=== PATIENT | female | born 1955 | race Caucasian/White ===

== ENCOUNTER 2023-02-17 12:05 | Outpatient (OUT) | payer MEDICARE, SELFPAY ==
[2023-02-17 12:19] LABS: Basophils Percent Auto 0.5 % (0.2-2.0); Eosinophils Absolute Auto 0.2 10^3/uL (0.0-0.7); Eosinophils Percent Auto 1.9 % (0.9-7.0); Hematocrit 41.4 % (36.0-48.0); Hemoglobin 13.7 g/dL (12.0-16.0); Immature Granulocytes Abs Auto 0.02 10^3/uL (0.00-0.03); Immature Granulocytes Pct Auto 0.2 % (0.0-0.5); Lymphocytes Absolute Auto 2.9 10^3/uL (1.2-3.8); Lymphocytes Percent Auto 33.7 % (20.5-60.0); Mean Corpuscular HGB Conc 33.1 g/dL (29.9-35.2); Mean Corpuscular Hemoglobin 32.2 pg (26.7-34.0); Mean Corpuscular Volume 97.4 fL (81.0-99.0); Mean Platelet Volume 9.6 fL (9.5-13.5); Monocytes Absolute Auto 0.7 10^3/uL (0.3-0.8); Monocytes Percent Auto 7.4 % (1.7-12.0); Neutrophils Absolute Auto 4.9 10^3/uL (1.4-6.5); Neutrophils Percent Auto 56.3 % (43.0-75.0); Platelet Count 276 10^3/uL (150-450); Red Blood Count 4.25 10^6/uL (4.20-5.40); Red Cell Distribution Width 12.2 % (11.0-15.0); White Blood Count 8.7 10^3/uL (4.0-11.0)
== END 2023-02-17 12:06 | disposition home or self-care (01) ==
LOC: LAB 12:06
DX: H02.839 Dermatochalasis of unspecified eye, unspecified eyelid (principal)
CPT/HCPCS: 36415; 85025

== ENCOUNTER 2023-03-27 14:19 | Outpatient (OUT) | payer MEDICARE, SELFPAY ==
--- NOTE | 2023-03-27 14:22 | MM_ITS ---
Patient: NORMA COLON Exam Date: 03/27/2023 : 1955 Gender:F Ordering : CHRIS KEYES Admission #: [id number] Family : Order #: [id number] CLICK HERE TO VIEW EXAM RADIOLOGY REPORT PROCEDURE: MM TOMOSYNTHESIS SCREENING BI COMPARISON: MG MAMM SCREEN 3D DEANNA CAD, 03/01/2021. MG MAMM SCREEN 3D DEANNA CAD, 03/20/2022. INDICATIONS: Screening Calculator Name NCI Breast Cancer Risk Assessment Tool 5 Year Breast Cancer Risk 2.40% Lifetime Breast Cancer Risk 7.60% Personal Breast Cancer No Personal Ovarian Cancer No Treatments None Family Cancers None LOCATION: [facility] BREAST COMPOSITION: Heterogeneously dense,which may obscure small masses. FINDINGS: DIAGNOSTIC CATEGORY 1--NEGATIVE. NO CHANGE FROM COMPARISON ASSESSMENT. Scattered benign-appearing calcifications are present. Scattered benign-appearing lymph nodes are present. RIGHT BREAST: No significant suspicious finding. LEFT BREAST: No significant suspicious finding. RECOMMENDATIONS: ROUTINE MAMMOGRAM AND CLINICAL EVALUATION IN 12 MONTHS. PLEASE NOTE: A NORMAL MAMMOGRAM DOES NOT EXCLUDE THE POSSIBILITY OF BREAST CANCER. A CLINICALLY SUSPICIOUS PALPABLE LUMP SHOULD BE BIOPSIED. Dictated by: Jorge Camejo MD on 03/30/2023 at 08:58 Approved by: Jorge Camejo MD on 03/30/2023 at 09:00
== END 2023-03-27 14:20 | disposition home or self-care (01) ==
LOC: MAMMO 14:19
PROVIDERS: PCP Nurse Practitioner Family; Visit Provider Nurse Practitioner Family
DX: Z12.31 Encounter for screening mammogram for malignant neoplasm of breast (principal)
CPT/HCPCS: 77063; 77067

== ENCOUNTER 2024-03-28 12:56 | Outpatient (OUT) | payer MEDICARE, SELFPAY ==
--- NOTE | 2024-03-28 13:00 | MM_ITS ---
Patient Name: NORMA COLON MR#: [id number] : 1955 Exam Date: 03/28/2024 Ordering Doctor: CHRIS PARKS [employer] OPERATOR-C RADIOLOGY REPORT PROCEDURE: MM TOMOSYNTHESIS SCREENING BI COMPARISON: MG MAMM SCREEN 3D DEANNA CAD, 03/20/2022. MM TOMOSYNTHESIS SCREENING BI, 03/27/2023. INDICATIONS: Screening Calculator Name NCI Breast Cancer Risk Assessment Tool 5 Year Breast Cancer Risk 2.40% Lifetime Breast Cancer Risk 7.30% Personal Breast Cancer No Personal Ovarian Cancer No Treatments None Family Cancers None LOCATION: [facility] BREAST COMPOSITION: The breasts are heterogeneously dense,which may obscure small masses. FINDINGS: DIAGNOSTIC CATEGORY 1--NEGATIVE. NO CHANGE FROM COMPARISON ASSESSMENT. Scattered benign-appearing nodules are present. Scattered benign-appearing calcifications are present. Scattered benign-appearing lymph nodes are present. RIGHT BREAST: No significant suspicious finding. LEFT BREAST: No significant suspicious finding. RECOMMENDATIONS: ROUTINE MAMMOGRAM AND CLINICAL EVALUATION IN 12 MONTHS. PLEASE NOTE: A NORMAL MAMMOGRAM DOES NOT EXCLUDE THE POSSIBILITY OF BREAST CANCER. A CLINICALLY SUSPICIOUS PALPABLE LUMP SHOULD BE BIOPSIED. Dictated by: Jorge Camejo MD on 03/28/2024 at 14:33 Approved by: Jorge Camejo MD on 03/28/2024 at 14:34
--- NOTE | 2024-03-28 13:00 | XR_ITS ---
The [address] [address] Patient Name: NORMA COLON MRN: [id number] date: 1955 Sex: F Assigned Patient Location: [facility] Current Patient Location: Accession/Order Number: [id number] Exam Date: 03/28/2024 13:30 Report Date: 03/29/2024 15:06 At the request of: CHRIS PARKS Procedure: XR DEXA axial skeleton EXAMINATION: XR DEXA axial skeleton, 03/28/2024 1:30 PM EST HISTORY: Screening COMPARISON: None. TECHNIQUE: Dual-energy X-ray absorptiometry (DEXA) bone density study performed for the axial skeleton. FINDINGS: Bone mineral density AP spine L1-L4 measures 1.258 g/sq cm. T score 0.7. Normal Bone mineral density of the radius measures 0.472 g/sq cm. T score 2.6. Normal XR/XR DEXA axial skeleton IMPRESSION: Normal bone mineral density. Low fracture risk Pharmacologic treatment recommendations * No uniform recommendation applies to all patients. Management plans must be individualized. * Consider initiating pharmacologic treatment in postmenopausal women and men >= 50 years of age who have the following: Primary fracture prevention: * T-score <= - 2.5 at the femoral neck, total hip, lumbar spine, 33% radius (some uncertainty with existing data) by DXA. * Low bone mass (osteopenia: T-score between - 1.0 and - 2.5) at the femoral neck or total hip by DXA with a 10-year hip fracture risk >= 3% or a 10-year major osteoporosis-related fracture risk >= 20% (i.e., clinical vertebral, hip, forearm, or proximal humerus) based on the [place]-adapted FRAXregistered model. Secondary fracture prevention: * Fracture of the hip or vertebra regardless of BMD [4, 5]. * Fracture of proximal humerus, pelvis, or distal forearm in persons with low bone mass (osteopenia: T-score between - 1.0 and - 2.5). The decision to treat should be individualized in persons with a fracture of the proximal humerus, pelvis, or distal forearm who do not have osteopenia or low BMD [12, 13]. Franko WEAVER, Austin HERNANDEZ, Donna KL, Quinton EM, Vitaliy KG, AJ, Kaela ES. The clinician's guide to prevention and treatment of osteoporosis. Osteoporos Int. 2021;33(10):4398-3509. doi: 10.1007/f06580-349-75855-g. Epub 2021Sep 19. Erratum in: Osteoporos Int. 2021Dec 19;: PMID: 93553785; PMCID: [id number]. Electronically authenticated by: SANTO PEREZ Date: 03/29/2024 15:06
== END 2024-03-28 12:57 | disposition home or self-care (01) ==
LOC: MAMMO 12:56
PROVIDERS: PCP Nurse Practitioner Family; Visit Provider Nurse Practitioner Family
DX: Z12.31 Encounter for screening mammogram for malignant neoplasm of breast (principal); Z78.0 Asymptomatic menopausal state; Z13.820 Encounter for screening for osteoporosis
CPT/HCPCS: 77063; 77067; 77080

== ENCOUNTER 2025-01-20 10:19 | Outpatient (OUT) | payer MEDICARE, SELFPAY ==
[2025-01-20 10:42] LABS: Hematocrit 41.4 % (36.0-48.0); Hemoglobin 14.0 g/dL (12.0-16.0); Immature Granulocytes Abs Auto 0.02 10^3/uL (0.00-0.03); Immature Granulocytes Pct Auto 0.3 % (0.0-0.5); Lymphocytes Absolute Auto 2.3 10^3/uL (1.2-3.8); Mean Corpuscular HGB Conc 33.8 g/dL (29.9-35.2); Mean Corpuscular Hemoglobin 32.3 pg (26.7-34.0); Mean Corpuscular Volume 95.4 fL (81.0-99.0); Platelet Count 267 10^3/uL (150-450); Red Blood Count 4.34 10^6/uL (4.20-5.40); White Blood Count 6.2 10^3/uL (4.0-11.0)
[2025-01-20 11:30] LABS: Alanine Aminotransferase 29 U/L (14-59); Albumin Globulin Ratio 1.0; Albumin Level 3.8 g/dL (3.4-5.0); Alkaline Phosphatase 76 U/L (46-116); Anion Gap 11.3; Aspartate Amino Transferase 20 U/L (15-37); Blood Urea Nitrogen 18.0 mg/dL (7.0-18.0); Calcium 8.7 mg/dL (8.5-10.1); Carbon Dioxide 29.4 mmol/L (21.0-32.0); Chloride 103 mmol/L (98-107); Cholesterol 197 mg/dL (<=200); Estimated GFR (African America >60 (>=60 mL/min/1.73m^2); Estimated GFR (Non-African Ame >60 (>=60 mL/min/1.73m^2); Globulin 3.9 g/dL; Glucose 98 mg/dL (74-106); HDL Cholesterol 74 mg/dL (40-60); Potassium 3.7 mmol/L (3.5-5.1); Sodium 140 mmol/L (136-145); Total Protein 7.7 g/dL (6.4-8.2); Triglycerides 77 mg/dL (<=150); VLDL CHOLESTEROL 15.4 mg/dL
== END 2025-01-20 10:20 | disposition home or self-care (01) ==
PROVIDERS: PCP Nurse Practitioner Family; Visit Provider Nurse Practitioner Family
DX: E78.2 Mixed hyperlipidemia (principal); I10 Essential (primary) hypertension
CPT/HCPCS: 36415; 80053; 80061; 85025

== ENCOUNTER 2025-03-29 14:00 | Outpatient (OUT) | payer MEDICARE, SELFPAY ==
--- NOTE | 2025-03-29 14:02 | MM_ITS ---
Patient Name: NORMA COLON MR#: [id number] : 1955 Exam Date: 03/29/2025 Ordering Doctor: CHRIS PARKS [employer] MAN-C RADIOLOGY REPORT PROCEDURE: MM TOMOSYNTHESIS SCREENING BI COMPARISON: MM TOMOSYNTHESIS SCREENING BI, 03/28/2024. MM TOMOSYNTHESIS SCREENING BI, 03/27/2023. MG MAMM SCREEN 3D DEANNA CAD, 03/20/2022. MG MAMM DEANNA SCRN W CAD DIG, 09/06/2013. INDICATIONS: Screening Calculator Name NCI Breast Cancer Risk Assessment Tool 5 Year Breast Cancer Risk 2.40% Lifetime Breast Cancer Risk 6.90% Personal Breast Cancer No Personal Ovarian Cancer No Treatments None Family Cancers None LOCATION: [facility] BREAST COMPOSITION: There are scattered areas of fibroglandular density. FINDINGS: DIAGNOSTIC CATEGORY 1--NEGATIVE. RIGHT BREAST: No significant suspicious finding. LEFT BREAST: No significant suspicious finding. RECOMMENDATIONS: ROUTINE MAMMOGRAM AND CLINICAL EVALUATION IN 12 MONTHS. Dictated by: Matias Russ MD on 03/29/2025 at 17:00 Approved by: Matias Russ MD on 03/29/2025 at 17:01
--- OUTSIDE RECORDS SUMMARY | 2025-03-29 14:03 | XMS_ITS | Clinical Summary ---
Author Organization [facility] Healthcare Address [address] [place] [address] Care Team Providers Care Monologist Name Role Phone Unavailable Primary Care Provider Unavailabl e Allergies No known active allergies Medications MedicationSigDispense QuantityRefillsLast FilledStart DateEnd DateStatus ASPIRIN 81 PO Aspir-81Active bisoprolol-hydroCHLOROthiazide (Ziac) 5-6.25 MG tablet 1 elupyu6301/18/2024ctive calcium 200 MG tablet CalciumActive fluorouracil (Efudex) 5 % cream Indications:Actinic keratosisApply to directed areas on the chest twice a day x 14 days. Dispense 30 day supply but only use for14 days. 40 g 02/17/2024ctive estradiol (Estrace) 0.1 MG/GM vaginal cream APPLY 1 GRAM VAGINALLY THURSDAY and THURSDAYActive atorvastatin (Lipitor) 20 MG tablet Active Active Problems No known active problems Social History Tobacco UseTypesPacks/DayYears UsedDateSmoking Tobacco: NeverSmokeless Tobacco: Never Tobacco Cessation:Counseling Given: Not Answered CommentsUnknownSex and Gender InformationValueDate RecordedSex Assigned at BirthNot on fileLegal TbaJcrbfk41/15/2023 6:38 PM EDTGender IdentityNot on fileSexual OrientationNot on file Last Filed Vital Signs Vital SignReadingTime TakenCommentsBlood Jmjimlxk056/8210 12:00 PM EDT Pulse--Temperature--Respiratory Rate--Oxygen Saturation--Inhaled Oxygen Concentration--Ghteer84.7 kg (147 lb)03/02/2024 9:35 AM UPTAybxan571.5 cm (5' 2 )03/02/2024 9:35 AM EDTBody Mass Index26.8903/02/2024 9:35 AM EDT Plan of Treatment DateTypeDepartmentCare Team (Latest Contact Info)Ejuhgfjxvfq50/07/2026 9:30 AM EDTOffice Visit [facility] [address] [place] [address] [place] [id number] Jr. Pancho Cespedes C, DO [address] [place] [address] Insurance
--- OUTSIDE RECORDS SUMMARY | 2025-03-29 14:04 | XMS_ITS | CCD ---
Author Organization [facility] Care Team Providers Care Die Engraver Name Role Phone LUCIA LINDA Primary Care Physician DR LUCIA LINDA Attending Unavailable SHANI, DR LUCIA Dan Consulting Unavailable SHANI, DR LUCIA Dan Primary Care Unavailable SHANI, DR LUCIA Dan Admitting Unavailable JOEY, DR LARRY Fraire Consulting Unavailable Lucia Linda Primary Care Unavailable Community, Outreach Admitting Unavailable Lucia Linda Referring Unavailable Community, Outreach Attending Unavailable MD Lucia Linda Primary Care Provider MD Lucia Linda Referring Provider Community, Outreach Attending Provider [phone] Johnna Dexter Unavailable Faiza Fritz Unavailable Courtney Mendez Unavailable COURTNEY MENDEZ Primary Care Physician Unavailable Primary Care Provider UnavailJENNIFER Rogers Attending Unavailable JR. CESPEDES GEORGE C Attending Unavailpawan CESPEDES JR., GEORGE C Referring UnavailCourtney Shafer APRN Primary Care Provider Courtney Mendez APRN Attending Provider [phone] COURTNEY MENDEZ Primary Care Physician Ursula Robledo Attending Unavailable Medications Current Medications MedicationDrug Class(es)DatesSig (Normalized)Sig (Original)amoxicillin 500 mg oral capsule (2 sources)Penicillin-class AntibacterialStart: 58-54-9233cjop 1 capsule by mouth every twelve hoursAmoxicillin 500 MG 1 capsule Orally Twice a day for 10 days Apr, ActiveAspir-81 81 MG (7 sources)take 1 tablet by mouth once dailyAspir-81 81 MG 1 tablet Orally Once a day Activeaspirin 81 mg delayed release oral tablet (11 sources)Platelet Aggregation Inhibitor, Nonsteroidal Anti-inflammatory Drug Start: 17-48-4738uxhz 1 tablet by mouth once dailyAspirin 81 mg tablet,delayed release (DR/EC) Active 81 MG PO Daily January 14, 2024 12:00am Complies with drug therapyStart: 92-23-0934kiodnkq 81 mg Chew Tab mg tab(s), Chewed, Daily, Refills(s) 0 Start Date: 09/24/20 Status: Ordered Repeat number: 1ASPIRIN 81 PO Aspir-81 Activebisoprolol fumarate 5 mg oral tablet (10 sources)beta-Adrenergic BlockerStart: 29-20-1190hppg 1 mg by mouth once dailybisoprolol 5 mg Tab mg tab(s), Oral, Daily, Refills(s) 0 Start Date: 09/24/20 Status: Ordered Repeat number: 1take 1 tablet by mouth every twenty-four hours Bisoprolol Fumarate 10 MG 1 tablet Orally Once a day for 90 days ActiveCalcium (5 sources)Phosphate Binder, Calciumcalcium 200 MG tablet Calcium Activecalcium carbonate 1250 mg oral tablet (10 sources)Start: 78-21-0933agiq 1 tablet by mouth twice dailyCalcium Carbonate 500 mg calcium (1,250 mg) tablet Active 500 MG PO Twice daily January 14, 2024 12:00am Complies with drug therapytake 1 tablet by mouth every twelve hours Calcium 500 MG 1 tablet with meals Orally Twice a day Activetake 1 tablet by mouth every twelve hoursCalcium 500 MG 1 tablet with meals Orally Twice a day Activecalcium carbonate 625 mg / cholecalciferol 125 unt oral tablet (3 sources)Vitamin DStart: 02-56-8577lnbg 1 tablet by mouth twice dailycalcium (as carbonate)-vitamin D 250 mg-125 units oral tablet 1 tab(s), Oral, BID, Refill(s) 0 Start Date: 09/24/20 Status: Ordered Repeat number: 1estradiol 0.1 mg/ml vaginal cream (13 sources)EstrogenStart: 62-87-4328Nawytuc 0.1 mg/g Cream See Instructions, 42.5 gm, Refill(s) 5, Apply pea-sized amount around urethra 2 times a week for maintenance, [facility], 158, cm, 01/18/25 10:13:00 EDT, Height/ Length Dosing, 66.4, kg, 01/18/25 10:13:00 EDT, Weight Dosing Start Date: 01/18/25 Status: Ordered Quantity: 42.5 Unit: g Repeat number: 6 Indications: Postmenopausal atrophic vaginitis;Start: 23-08-2209Wxpfvtqhn 0.01 % (0.1 mg/gram) cream Active 1 APPLICATOR VAGINAL Twice a Week January 14, 2024 12:0 0am Complies with drug therapyStart: 70-19-4663vzvudpgpx 0.1 mg/g Vag Crm 1 gm, Vaginal, MonFri, 42.5 gm, Refill(s) 6, 1 gm 2x/wk, [facility], 158, cm, 04/21/23 15:43:00 EST, Height/Length Dosing, 69.1, kg, 04/21/23 15:43:00 EST, Weight Dosing Start Date: 04/21/23 Status: OrderedStart: 63-29-0594rlhmwmazr 0.1 mg/g Vag Crm 1 gm, Vaginal, MonFri, 42.5 gm, Refill(s) 6, [facility], 158, cm, 02/11/21 11:10:00 EDT, Height/Length Dosing, 69, kg, 02/11/21 11:10:00 EDT, Weight Dosing Start Date: 04/25/21 Status: Ordered estradiol (Estrace) 0.1 MG/GM vaginal cream APPLY 1 GRAM VAGINALLY THURSDAY and THURSDAY ActiveEstradiol 0.01% cream twice weekly Activefluorouracil 50 mg/ml topical cream (5 sources)Nucleoside Metabolic InhibitorStart: 96-31-0330aygppprufkhg (Efudex) 5 % cream Indications: Actinic keratosis Apply to directed areas on the chest twice a day x 14 days. Dispense 30 day supply but only use for 14 days. 40 g 02/17/2024 ActivepredniSONE 20 mg oral tablet (1 source)Start: 34-15-2679vunc 1 tablet by mouth every twelve hourspredniSONE 20 MG 1 tablet Orally bid for 4 days Jan, Active Completed/Discontinued Medications MedicationDrug Class(es)DatesSig (Normalized)Sig (Original)amitriptyline hydrochloride 25 mg oral tablet (20 sources)Tricyclic AntidepressantStart: 08-12-2023 End: 97-59-6100biro 1 tablet by mouth once dailyAmitriptyline 10 mg tablet Discontinued 10 MG PO Daily August 12, 2023 1:40pm August 12, 2023 2:59pmStart: 09-24-2020 End: 21-07-1952dceq 1 tablet by mouth once dailyAmitriptyline 25 mg tablet Discontinued 25 MG PO Daily August 12, 2023 3:03pm January 18, 2024 10:38amtake 1 tablet by mouth every twenty-four hoursAmitriptyline HCl 10 MG 1 tablet Orally Once a day for 90 days Activeatorvastatin 20 mg oral tablet (20 sources)HMG-CoA Reductase InhibitorStart: 09-24-2020 End: 26-51-1360lagl 1 tablet by mouth once dailyAtorvastatin 20 mg tablet Discontinued 20 MG PO Daily August 12, 2023 1:40pm January 18, 2024 10:38am End: 75-95-0996jurghqcyijji (Lipitor) 10 MG tablet Atorvastatin Calcium 03/02/2024 DiscontinuedAtorvastatin Calcium Activebisoprolol fumarate 5 mg / hydroCHLOROthiazide 6.25 mg oral tablet (20 sources)Thiazide Diuretic, beta-Adrenergic BlockerStart: 01-18-2024 bisoprolol-hydroCHLOROthiazide (Ziac) 5-6.25 MG tablet 1 tablet 01/18/2024 ActiveStart: 08-12-2023 End: 21-68-9559wxse 1 tablet by mouth once dailyBisoprolol-Hydrochlorothiazide 5-6.25 mg tablet Discontinued 1 TAB PO Daily August 12, 2023 1:41pm January 18, 2024 10:38amcefTRIAXone (7 sources)Cephalosporin AntibacterialStart: 61-18-6143Iqlkkgxe 500 mg May, 1 grmcetirizine hydrochloride 10 mg oral tablet (2 sources)Histamine-1 Receptor AntagonistStart: 97-48-4948ursn 1 tablet by mouth every twenty-four hoursCetirizine HCl 10 MG 1 tablet Orally Once a day for 14 days Jul, Not-Takingfluticasone propionate 0.05 mg/actuat metered dose nasal spray (2 sources)CorticosteroidStart: 01-19-0297xhgu 1 spray(s) nasal route twice dailyFlonase Allergy Relief 50 MCG/ACT 1 spray in each nostril Nasally Twice a day for 14 days Jul, Not-Takingtriamcinolone acetonide 40 mg/ml injectable suspension (6 sources)CorticosteroidStart: 83-76-8037Gjrklia-40 Jan, 40 mg Problems Active Problems Problem ClassificationProblemDateDocumented DateEpisodic/ChronicAbdominal pain (2 sources)Abdominal pain; Translations: [Abdominal pain]EpisodicDisorders of lipid metabolism (12 sources)Mixed hyperlipidemia; Translations: [Mixed hyperlipidemia]Chronic Essential hypertension (15 sources)Essential hypertension; Translations: [Essential (primary) hypertension]Onset: [id number]owjv symptoms and ill- defined conditions (5 sources)Microscopic hematuria; Translations: [Asymptomatic microscopic hematuria]Onset: 630295-60-9257PawaghbjSeqgacowpj disorders (5 sources)Atrophic vaginitis; Translations: [Postmenopausal atrophic vaginitis] Onset: 30-72-0405UiftxvfElvtlahfqazix mental health disorders (7 sources)Primary insomnia; Translations: [Primary insomnia]ChronicOther aftercare (1 source)exterminator termite (current) use of antibioticsEpisodicOther connective tissue disease (2 sources)History of total replacement of bilateral hip joints; Translations: [Presence of artificial hip joint, bilateral]28-79-6486PvqjkrdIsmgn diseases of bladder and urethra (6 sources)Urethral stricture; Translations: [Other urethral stricture, female] Onset: 93-27-3754RnnadlqcZlpaz non-traumatic joint disorders (4 sources)Hip pain; Translations: [Pain in right hip]56-37-5495TtihxjmkLvwkp nutritional; endocrine; and metabolic disorders (2 sources)Overweight in adulthood with body mass index of 25 or more but less than 30; Translations: [Body mass index (BMI) 26.0-26.9, adult]01-16-2025 EpisodicOther screening for suspected conditions (not mental disorders or infectious disease) (10 sources)Encounter for screening mammogram for malignant neoplasm of breast; Translations: [Patient encounter status]Onset: 25-97-3480IcwldquyYepkh skin disorders (2 sources)Inflamed seborrheic keratosis; Translations: [Inflamed seborrheic keratosis]20-57-8386LhjpfxpfVjzbx skin disorders (2 sources)Actinic keratosis; Translations: [Actinic keratosis]02-17-2024 EpisodicOther upper respiratory disease (7 sources)Seasonal allergic rhinitis; Translations: [Other seasonal allergic rhinitis]ChronicOther upper respiratory disease (1 source)Other seasonal allergic rhinitisChronicPoisoning by nonmedicinal substances (1 source)Toxic effect of venom of bees, accidental (unintentional), initial encounterEpisodicResidual codes; unclassified (4 sources)Insomnia; Translations: [Insomnia, unspecified]41-88-6377Wswrvtxm Residual codes; unclassified (2 sources)Postmenopausal state; Translations: [Asymptomatic menopausal state] 31-84-3571HceeidraSbxmesam codes; unclassified (1 source)Tobacco kwuh76-88-7299TsayvrxqZsccmrcywacf (3 sources)Asymptomatic microscopic aqwdzoofw59-77-0599Azstlvq tract infections (7 sources)Postinfective urethral stricture of female; Translations: [Urinary tract infectious disease]41-64-3862Wzfrojab Past or Other Problems Problem ClassificationProblemDateDocumented DateEpisodic/ChronicUnclassified (2 sources)dilated biliary tree; Translations: [dilated biliary tree] Unclassified (2 sources)Abnormal CT scan, pancreas or bile duct; Translations: [Abnormal CT scan, pancreas or bile duct] Results Test NameValueInterpretationReference RangeFacilityBasophils Auto (Bld) [#/Vol] Ordered By: Courtney Mendez on 33-36-4797Vebrzqmtl (Bld) [#/Vol]0.0 10 3/uL 0.0-0.1FParkview HealthBasophils/100 WBC Auto (Bld)Ordered By: Courtney Mendez on 62-65-2479Vbkroqxsb/100 WBC (Bld)0.3 %0.2-2.0[facility] CenterCholesterol in LDL Calc [Mass/Vol]Ordered By: Courtney Mendez on 95-15-4468Mowympwutuf in LDL [Mass/Vol]108.0 mg/dLUniversity Hospitals Beachwood Medical CenterComment on above:<100 mg/dl QYZCPVX640-854 mg/dl NEAR OR ABOVE UNDFIJM477-414 mg/dl BORDERLINE RASG419-648 mg/dl HIGH>190 mg/dl VERY HIGH Cholesterol in VLDL Calc [Mass/Vol]Ordered By: Courtney Mendez on 01-20-2025 Cholesterol in VLDL [Mass/Vol]15.4 mg/dLUniversity Hospitals Beachwood Medical Center Eosinophils/100 WBC Auto (Bld)Ordered By: Courtney Mendez on 01-20-2025 Eosinophils/100 WBC (Bld)2.9 %0.9-7.0[facility] Erythrocyte distribution width Auto (RBC) [Ratio]Ordered By: Courtney Mendez on 60-75-0653Pwvcnmassqs distribution width (RBC) [Ratio]11.8 %11.0-15.0 [facility] CenterGlobulin Calc (S) [Mass/Vol]Ordered By: Courtney Mendez on 56-28-7289Eklbecfm (S) [Mass/Vol]3.9 g/dLUniversity Hospitals Beachwood Medical CenterGlomerular filtration rate (GFR) estimation in non- AmericanOrdered By: Courtney Mendez on 41-59-4958SZD/1.73 sq M.predicted among non-blacks MDRD (S/P/Bld) [Vol rate/Area]mL/min/{1.73_m2}>=60 mL/min/1.73m 2FParkview HealthHematocrit Auto (Bld) [Volume fraction]Ordered By: Courtney Mendez on 14-67-0150Ydyhtqkrmd (Bld) [Volume fraction]41.4 %36.0-48.0[facility] CenterHemoglobin [Mass/volume] in BloodOrdered By: Courtney Mendez on 06-49-1632Pzwoewlryl (Bld) [Mass/Vol]14.0 g/dL12.0-16.0[facility] CenterLaboratory - Chemistry and Chemistry - challengeOrdered By: Courtney Mendez on 01-20-2025 Albumin [Mass/Vol]3.8 g/dL3.4-5.0[facility] Medical CenterALP [Catalytic activity/Vol]76 U/C10-813OnyyufjgsUniversity Hospitals Beachwood Medical CenterALT [Catalytic activity/Vol]29 U/B10-09QbhhnyikmUniversity Hospitals Beachwood Medical CenterAST [Catalytic activity/Vol]20 U/Y02-18HbnebdpgqUniversity Hospitals Beachwood Medical CenterBilirubin [Mass/Vol]0.5 mg/dL0.2-1.0[facility] Medical CenterCalcium [Mass/Vol]8.7 mg/dL 8.5-10.1FParkview HealthChloride [Moles/Vol]103 mmol/L98-107 [facility] CenterCholesterol [Mass/Vol]197 mg/dL<=200[facility] CenterCholesterol in HDL [Mass/Vol]74 mg/wJAqxg70-55IpiuxazgjUniversity Hospitals Beachwood Medical CenterComment on above:> or =60 mg/dl - LOW CARDIOVASCULAR RISK<40 mg/dl - HIGH CARDIOVASCULAR RISKCO2 [Moles/Vol]29.4 mmol/L21.0-32.0 [facility] CenterCreatinine [Mass/Vol]0.74 mg/dL0.55-1.02 [facility] CenterGFR/1.73 sq M.predicted MDRD (S/P/Bld) [Vol rate/Area]mL/min/{1.73_m2}>=60 mL/min/1.73m 2FParkview Health Glucose [Mass/Vol]98 mg/xX29-081OuverrsnfUniversity Hospitals Beachwood Medical CenterPotassium [Moles/Vol]3.7 mmol/L3.5-5.1FParkview HealthProtein [Mass/Vol] 7.7 g/dL6.4-8.2FCleveland Clinic Medina Hospitalodium [Moles/Vol]140 mmol/L 136-145[facility] CenterTriglyceride [Mass/Vol]77 mg/dL<=150 [facility] CenterUrea nitrogen [Mass/Vol]18.0 mg/dL7.0-18.0 [facility] CenterUrea nitrogen/Creatinine [Mass ratio]24.3 mg/mg [facility] CenterLaboratory - Hematology and Cell countsOrdered By: Courtney Mendez on 11-77-7153Walfomme granulocytes/100 WBC (Bld)0.3 % 0.0-0.5FParkview HealthLeukocytes [#/volume] corrected for nucleated erythrocytes in Blood by Automated counOrdered By: Courtney Mendez on 25-44-9667PXU corrected for nucl RBC Auto (Bld) [#/Vol]6.2 10 3/uL4.0-11.0 [facility] CenterLymphocytes Auto (Bld) [#/Vol]Ordered By: Courtney Mendez on 51-84-9818Dovtlcuyjed (Bld) [#/Vol]2.3 10 3/uL1.2-3.8 [facility] CenterLymphocytes/100 WBC Auto (Bld)Ordered By: Courtney Mendez on 07-18-3563Caiotqajmyb/100 WBC (Bld)36.5 %20.5-60.0 [facility] CenterMC Auto (RBC) [Entitic mass]Ordered By: Courtney Mendez on 11-96-0121OXY (RBC) [Entitic mass]32.3 pg26.7-34.0 [facility] Medical CenterMCHC Auto (RBC) [Mass/Vol]Ordered By: Courtney Mendez on 68-08-4097OQTI (RBC) [Mass/Vol]33.8 g/dL29.9-35.2FParkview HealthMCV Auto (RBC) [Entitic vol]Ordered By: Courtney Mendez on 47-32-2392KYC (RBC) [Entitic vol]95.4 fL81.0-99.0[facility] CenterMonocytes Auto (Bld) [#/Vol]Ordered By: Courtney Mendez on 70-35-1763Ehjyhhusx (Bld) [#/Vol]0.6 10 3/uL0.3-0.8[facility] CenterMonocytes/100 WBC Auto (Bld)Ordered By: Courtney Mendez on 35-09-6996Rytplgiee/100 WBC (Bld)9.4 %1.7-12.0[facility] Medical CenterNeutrophils Auto (Bld) [#/Vol]Ordered By: Courtney Mendez on 58-91-4937Tmcziybvifd (Bld) [#/Vol]3.1 10 3/uL1.4-6.5FParkview HealthNeutrophils/100 WBC Auto (Bld)Ordered By: Courtney Mendez on 41-99-0724Igfieqorqyf/100 WBC (Bld)50.6 %43.0-75.0[facility] CenterNo Panel InformationOrdered By: Courtney Mendez on 01-20-2025 Eosinophils # (Auto)0.2 10 3/uL0.0-0.7FParkview HealthImmature Granulocyte # (Auto)0.02 10 3/uL0.00-0.03[facility] Platelet mean volume Auto (Bld) [Entitic vol]Ordered By: Courtney Mendez on 62-93-0886Mwzyhcjr mean volume (Bld) [Entitic vol]9.4 fLLow9.5-13.5FParkview HealthPlatelets Auto (Bld) [#/Vol]Ordered By: Courtney Mendez on 65-81-8587Bwscqosab (Bld) [#/Vol]267 10 3/hS535-491DkgaapjwqUniversity Hospitals Beachwood Medical CenterRBC Auto (Bld) [#/Vol]Ordered By: Courtney Mendez on 56-39-9030QCR (Bld) [#/Vol]4.34 10 6/uL4.20-5.40[facility] Northerum or plasma albumin/globulin mass ratioOrdered By: Courtney Mendez on 01-57-1677Yaeqmzx/Globulin [Mass ratio]1.0 {ratio}[facility] Northerum or plasma anion gap determinationOrdered By: Courtney Mendez on 42-63-0511Syjvd gap [Moles/Vol]11.3 mmol/LFCleveland Clinic Medina Hospitalerum or plasma total cholesterol/high density lipoprotein (HDL) cholesterol mass rat Ordered By: Courtney Mendez on 54-35-1301Vzsqktcxmtu.total/Cholesterol in HDL [Mass ratio]2.7 {ratio}[facility] CenterComment on above:3.3 - 4.4 LOW RISK4.4 - 7.1 AVERAGE RISK7.1 - 11.0 MODERATE RISK>11.0 HIGH RISK Ambulatory Visit Summaryon 26-41-9577Whcbqnnvbs Visit SummaryAmbulatory Visit Summary DANA DOBBINS :1955 Visit Date:01/18/2025 Ambulatory Visit Instructions Your Diagnosis Atrophic vaginitis Other urethral stricture, female Asymptomatic microscopic hematuria Your Care Team Attending Physician - Ursula Robledo PA-C Primary Care Physician - COURTNEY MENDEZ CNP This Is Your Medications List amitriptyline (amitriptyline 25 mg Tab) aspirin (aspirin 81 mg Chew Tab) atorvastatin (atorvastatin 20 mg Tab) bisoprolol (bisoprolol 5 mg Tab) calcium-vitamin D (calcium (as carbonate)-vitamin D 250 mg-125 units oral tablet) estradiol topical (Estrace 0.1 mg/g Cream) Procedures Performed Dilation of urethra (09/23/2021), Dilation of urethra (02/11/2021), Cystourethroscopy with dilationof urethral stricture (10/02/2020), Cholecystectomy, Colonoscopy, Hip replacement. Discharge Vitals Heart Rate (Peripheral) 65 Blood Pressure 127/77 Height 158 cm Height 62 in Weight 66.4 kg Weight 146.387 lb BMI 26.6 What to do next You Need to Schedule the Following Appointments Follow Up with Ursula Robledo PA-C, URL When: In 1 year Where: Medications What How Much When Why Instructions Changed estradiol topical (Estrace 0.1 mg/ g Cream) See instructions Atrophic vaginitis Apply pea-sized amount around urethra 2 times a week for maintenance Pickup at [facility] Unchanged amitriptyline (amitriptyline 25 mg Tab) By Mouth Once a day (at bedtime) Unchanged aspirin (aspirin 81 mg Chew Tab) Chewed Every day Unchanged atorvastatin (atorvastatin 20 mg Tab) By Mouth Every day Unchanged bisoprolol (bisoprolol 5 mg Tab) By Mouth Every day Unchanged calcium-vitamin D (calcium (as carbonate)-vitamin D 250 mg-125 units oral tablet) 1 Tablets By Mouth 2 times a day Pharmacy Information [facility]: [address] [place], [place] [id number] [phone] Allergies No Known Allergies Problems Ongoing - Any problem that you are currently receiving treatment for. Asymptomatic microscopic hematuria Atrophic vaginitis Essential hypertension Hypertensive disorder Microscopic hematuria Mixed hyperlipidemia Other urethral stricture, female Postinfective urethral stricture in female UTI (urinary tract infection) Patient Survey You may receive a survey via text or e-mail asking about your office visit. Please share your experience with us by completing your survey. We appreciate your feedback and thank you for choosing us for your care. Education Materials Atrophic Vaginitis Atrophic vaginitis is a condition in which the tissues that line the vagina become dry and thin. This condition is most common in women who have stopped having regular menstrual periods (are in menopause). This usually starts when a woman is 45 to 55 years old. That is the time when a woman's estrogen levels begin to decrease. Estrogen is a female hormone. It helps to keep the tissues of the vagina moist. It stimulates the vagina to produce a clear fluid that lubricates the vagina for sex. This fluid also protects the vagina from infection. Lack of estrogen can cause the lining of the vagina to get thinner and dryer. Thevagina may also shrink in size. It may become less elastic. Atrophic vaginitis tends to get worse over time as a woman's estrogen level drops. What are the causes? This condition is caused by the normal drop in estrogen that happens around the time of menopause. What increases the risk? Certain conditions or situations may lower a woman's estrogen level, leading to a higher risk for atrophic vaginitis. You are more likely to develop this condition if: ??? You are taking medicines that block estrogen. ??? You have had your ovaries removed. ??? You are being treated for cancer with radiation or medicines (chemotherapy). ??? You have given or are . ??? You are older than age 50. ??? You smoke. What are the signs or symptoms? Symptoms of this condition include: ??? Pain, soreness, a feeling of pressure, or bleeding during sex (dyspareunia). ??? Vaginal burning, irritation, or itching. ??? Pain or bleeding when a speculum is used in a vaginal exam. ??? Having burning pain while urinating. ??? Vaginal discharge. In some cases, there are no symptoms. How is this diagnosed? This condition is diagnosed based on your medical history and a physical exam. This will include a pelvic exam that checks the vaginal tissues. Though rare, you may also have other tests, including: ??? A urine test. ??? A test that checks the acid balance in your vagina (acid balance test). How is this treated? Treatment for this condition depends on how severe your symptoms are. Treatment may include: ??? Using an afrj-cuf-qojszuu vaginal lubricant before sex. ??? Using a long-acting vaginal moisturizer. ??? Using low-dose estrogen (more content not included)...[facility] 22-62-4409EpudmyespWmuftkjth From: Cheryl Solomon To: EU - Administrative; Sent: 01/18/2025 12:26:19 EDT Show up: 08/23/2025 12:26:00 EDT Subject: Ambulatory Reminder Due Date/Time: 01/18/2026 12:26:00 EDT Reminder/Recall Patient needs scheduled for a 1yr [facility]/Clinic Noteon [phone] Office/Clinic NoteUrology Office/Clinic Note Chief Complaint med refill HPI Staff 69 year old female patient here for follow up for a medication refill. Last seen with EDWARD 04/21/23. Previous dx: other urethral stricture, atrophic vaginalitis and asymptomatic micro hematuria Patient denies any dysuria or gross hematuria. Denies any flank or abdomen pain. no symptoms estradiol cream History of Present Illness I have reviewed and verified the staff HPI to be accurate for this encounter. Review of Systems PHQ Score Initial Depression Screen Score: 0 SCORE no fever, chills, malaise, myalgia. no abdominal pain, nausea, vomiting. Physical Exam Vitals & Measurements HR: 65(Peripheral) BP: 127/77 HT: 62 in HT: 158 cm WT: 146.387 lb WT: 66.4 kg BMI: 26.6 General: Well developed, well nourished, in no acute distress. Assessment/Plan 69 yo female pt here for f/u for med refills 1. Atrophic vaginitis (N95.2: Postmenopausal atrophic vaginitis) Shares she is doing well on the Estrogen cream twice weekly. Needs refills today. No bothersome SEs. Risks/benefits discussed. Shares she uses applicator for cream, but wishes 1 tube of cream would last longer. Advised her to trial using a pea-sized amt around urethra 2x/week for maintenance. She verbalizes understanding. All questions answered. Offered for her to refill meds w/ PCP, or schedule 1 year follow up with our office. She wishes to schedule f/u visit, will call if she decides to obtain refills through PCP instead. -Cont Estrace cream 2x/week. Refills sent. -F/U in 1 year for med refills Ordered: estradiol topical, See Instructions, 42.5 gm, Refill(s) 5, Apply pea-sized amount around urethra 2 times a week for maintenance, [facility], 158, cm, 01/18/25 10:13:00 EDT, Height/Length Dosing, 66.4, kg, 01/18/25 10:13:00 EDT, Weight Dosing 2. Other urethral stricture, female (N35.82: Other urethral stricture, female) S/p UD September 2021 and Jan 2021. Doing well. Good strong steady stream. No complaints today, does notwish to do another UD unless absolutely necessary. 3. Asymptomatic microscopic hematuria (R31.21: Asymptomatic microscopic hematuria) Neg hematuria work-up previously, September 2020 No UA provided today, pt unable to void IO (trace-intact last visit) She denies gross hematuria -Cont routine monitoring of UAs -Pt to notify our office for gross hematuria Follow-up With When Contact Information Ursula Robledo PA-C, URL In 1 year Additional Instructions: Patient Education Atrophic Vaginitis Problem List/Past Medical History Ongoing Asymptomatic microscopic hematuria Atrophic vaginitis Essential hypertension Hypertensive disorder Microscopic hematuria Mixed hyperlipidemia Other urethral stricture, female Postinfective urethral stricture in female UTI (urinary tract infection) Historical No qualifying data Procedure/Surgical History Dilation of urethra (09/23/2021), Dilation of urethra (02/11/2021), Cystourethroscopy with dilationof urethral stricture (10/02/2020), Cholecystectomy, Colonoscopy, Hip replacement. Medications amitriptyline 25 mg Tab, Oral, Once a day (at bedtime) aspirin 81 mg Chew Tab, Chewed, Daily atorvastatin 20 mg Tab, Oral, Daily bisoprolol 5 mg Tab, Oral, Daily calcium (as carbonate)-vitamin D 250 mg-125 units oral tablet, 1 tab(s), Oral, BID Estrace 0.1 mg/g Cream, See Instructions, 5 refills Allergies No Known Allergies Social History Alcohol Never., 01/17/2025 Substance Abuse Never., 01/17/2025 Tobacco 4 or less cigarettes(less than 1/4 pack)/day in last 30 days Tobacco Use:., 01/17/2025 Family History Alzheimer's disease: Mother. Arthritis: Mother. Immunizations Vaccine Date Status Comments diphtheria/pertussis, acel/tetanus adult 11/09/2024 Recorded influenza virus vaccine, inactivated 03/07/2024 Recorded RSV vaccine preF3, recombinant 05/26/2023 Recorded influenza virus vaccine, inactivated 02/24/2022 Recorded SARS-CoV-2 (COVID-19) mRNAMUL.ORD![id number] 02/13/2022 Recorded 2022-03-28: TPV65 SARS-CoV-2 (COVID-19) mRNA-1273 vaccine 09/24/2021 Recorded 2022-03-28: TPV65 SARS-CoV-2 (COVID-19) mRNA-1273 vaccine 03/29/2021 Recorded 2022-03-28: TPV65 influenza virus vaccine, inactivated 02/27/2021 Recorded zoster vaccine, inactivated 12/13/2020 Recorded SARS-CoV-2 (COVID-19) Ad26 vaccine 09/03/2020 Recorded SARS-CoV-2 (COVID-19) mRNA-1273 vaccine 08/02/2020 Recorded SARS-CoV-2 (COVID-19) mRNA-1273 vaccine 07/05/2020 Recorded influenza virus vaccine, inactivated 02/09/2020 Recorded pneumococcal 23-valent vaccine 11/11/2019 Recorded influenza virus vaccine, inactivated 03/07/2019 Recorded influenza virus vaccine, inactivated 03/19/2017 Recorded influenza virus vaccine, inactivated 02/22/2015 RecordedNoDayton Children's HospitalComment on above:Result Comment: Electronically Signed By: Meena MATTHEWS, Ursula\.jaky\Date and Time Signed: 01/18/25 11:23 EDTNo Panel Informationon 52-11-2480ZRSO HealthcareAlbumin [Mass/volume] in Serum or PlasmaOrdered By: [facility] on 57-93-9361Iewjqwz [Mass/Vol]4.1 g/dL3.2-5.5FParkview HealthCBC Without Differentialon 67-66-2246Wdurfbfpknj distribution width (RBC) [Ratio]12.6 %Wspdsi40.9-15.3FParkview HealthComment on above:Performed By: #### OUTREACH LIPID, OUTREACH CMP, CBCNOOUTREACH #### [place] [address] USAHematocrit (Bld) [Volume fraction]42.9 %Clpwvl43.0-46.4 [facility] CenterComment on above:Performed By: #### OUTREACH LIPID, OUTREACH CMP, CBCNOOUTREACH #### [place] [address] USAHemoglobin (Bld) [Mass/Vol]14.6 g/eDBpwvpm20.8-15.4 [facility] CenterComment on above:Performed By: #### OUTREACH LIPID, OUTREACH CMP, CBCNOOUTREACH #### [address] [address] USAH (RBC) [Entitic mass]32.1 chXuvwop36.7-34.3FParkview HealthComment on above:Performed By: #### OUTREACH LIPID, OUTREACH CMP, CBCNOOUTREACH #### [place] [address] USAV (RBC) [Entitic vol]94.4 bGEnylie82-805BunxgciokUniversity Hospitals Beachwood Medical CenterComment on above:Performed By: #### OUTREACH LIPID, OUTREACH CMP, CBCNOOUTREACH #### [place] [address] USAMean Corpuscular HGB Conc34.0 g/jGIogwwk71.0-35.0[facility] CenterComment on above:Performed By: #### OUTREACH LIPID, OUTREACH CMP, CBCNOOUTREACH #### [facility] [address] [place] [address] USAPlatelet mean volume (Bld) [Entitic vol]8.5 fLNormal 6.3-10.7FParkview HealthComment on above:Result Comment: PERFORMED BY: [place] [address] PATHOLOGIST SAFETY EQUIPMENT TESTER JESENIA RIVERA M.D.Performed By: #### OUTREACH LIPID, OUTREACH CMP, CBCNOOUTREACH #### [facility] [address] [place] [address] USAPlatelets (Bld) [#/Vol]279 10*3/pVLapcii126-773OfwbxkqatUniversity Hospitals Beachwood Medical CenterComment on above:Performed By: #### OUTREACH LIPID, OUTREACH CMP, CBCNOOUTREACH #### [facility] [address] [place] [address] USARBC (Bld) [#/Vol]4.55 10*6/uLNormal3.60-5.00[facility] CenterComment on above:Performed By: #### OUTREACH LIPID, OUTREACH CMP, CBCNOOUTREACH #### [facility] [address] [place] [address] USAWBC (Bld) [#/Vol]7.2 10*3/uLNormal3.8-11.6FParkview HealthComment on above:Performed By: #### OUTREACH LIPID, OUTREACH CMP, CBCNOOUTREACH #### [facility] [address] [place] [address] USACMP Outreachon 40-57-2321Agxnpci [Mass/Vol]4.1 g/dLNormal 3.2-5.5FParkview HealthComment on above:Performed By: #### OUTREACH LIPID, OUTREACH CMP, CBCNOOUTREACH #### [facility] [address] [place] [address] USAALP [Catalytic activity/Vol]56 U/KQgxohj53-06ZczutmcafUniversity Hospitals Beachwood Medical CenterComment on above:Performed By: #### OUTREACH LIPID, OUTREACH CMP, CBCNOOUTREACH #### [facility] [address] [place] [address] USAALT [Catalytic activity/Vol]35 U/MDpwoml53-48FjwtczrqjUniversity Hospitals Beachwood Medical CenterComment on above:Performed By: #### OUTREACH LIPID, OUTREACH CMP, CBCNOOUTREACH #### [facility] [address] [place] [address] USAAnion gap [Moles/Vol]9.9 mmol/LNormal6.0-15.0[facility] CenterComment on above:Performed By: #### OUTREACH LIPID, OUTREACH CMP, CBCNOOUTREACH #### [facility] [address] [place] [id number] USAAST [Catalytic activity/Vol]29 U/FEivpsg92-56AbnuawckfUniversity Hospitals Beachwood Medical CenterComment on above:Performed By: #### OUTREACH LIPID, OUTREACH CMP, CBCNOOUTREACH #### [facility] [address] [place] [id number] USABilirubin [Mass/Vol]0.6 mg/dLNormal0.3-1.2FParkview HealthComment on above:Performed By: #### OUTREACH LIPID, OUTREACH CMP, CBCNOOUTREACH #### [facility] [address] [place] [id number] USACalcium [Mass/Vol]9.5 mg/dLNormal8.2-10.2FParkview HealthComment on above:Performed By: #### OUTREACH LIPID, OUTREACH CMP, CBCNOOUTREACH #### [facility] [address] [place], [place] [address] USAChloride [Moles/Vol]102 mmol/BVtxuyv09-849OblzuknjkUniversity Hospitals Beachwood Medical CenterComment on above:Performed By: #### OUTREACH LIPID, OUTREACH CMP, CBCNOOUTREACH #### [facility] [address] [place] [id number] USACO2 [Moles/Vol]29.1 mmol/VNjiidk15.0-30.0[facility] CenterComment on above:Performed By: #### OUTREACH LIPID, OUTREACH CMP, CBCNOOUTREACH #### [facility] [address] [place] [address] USACreatinine [Mass/Vol]0.79 mg/dLNormal0.44-1.03[facility] CenterComment on above:Performed By: #### OUTREACH LIPID, OUTREACH CMP, CBCNOOUTREACH #### [facility] [address] [place] [address] USAEstimated GFR ( Colleen> 60NoMcKitrick HospitalComment on above:Result Comment: GFR estimated reference range: According to KDOQI guidelines, <60 ml/min/1.73m2 is sufficient to diagnose a patient with chronic kidney disease.Performed By: #### OUTREACH LIPID, OUTREACH CMP, CBCNOOUTREACH #### [facility] [address] [place] [address] USAEstimated GFR (Non- Am> 60NoMcKitrick HospitalComment on above:Performed By: #### OUTREACH LIPID, OUTREACH CMP, CBCNOOUTREACH #### [facility] [address] [place] [id number] USAGlucose [Mass/Vol]98 mg/kCVcxldo73-791UagovsmrvUniversity Hospitals Beachwood Medical CenterComment on above:Result Comment: Random Glucose Reference Range is dependent on time and content of last meal. Glucose of more than 200 mg/dL in a nonstressed, ambulatory subject supports the diagnosis of Diabetes Mellitus. ADA recommended reference rangePerformed By: #### OUTREACH LIPID, OUTREACH CMP, CBCNOOUTREACH #### [facility] [address] [place] [address] USAPotassium [Moles/Vol]4.0 mmol/LNormal3.5-5.1FParkview HealthComment on above:Performed By: #### OUTREACH LIPID, OUTREACH CMP, CBCNOOUTREACH #### [facility] [address] [place] [id number] USAProtein [Mass/Vol]6.9 g/dLNormal6.1-7.9[facility] CenterComment on above:Performed By: #### OUTREACH LIPID, OUTREACH CMP, CBCNOOUTREACH #### [facility] [address] [place] [address] USASodium [Moles/Vol]137 mmol/TItmelu728-153HgtfxeejoUniversity Hospitals Beachwood Medical CenterComment on above:Performed By: #### OUTREACH LIPID, OUTREACH CMP, CBCNOOUTREACH #### [facility] [address] [place] [address] USAUrea nitrogen [Mass/Vol]18 mg/dLNormal9-23[facility] CenterComment on above:Performed By: #### OUTREACH LIPID, OUTREACH CMP, CBCNOOUTREACH #### [facility] [address] [place] [address] USACholesterol [Mass/volume] in Serum or PlasmaOrdered By: [facility] on 07-63-4548Ostjbznsmuk [Mass/Vol]199 mg/iA894-061BuukoaqdqUniversity Hospitals Beachwood Medical CenterComment on above:Chol less than 200 mg/dl low riskChol 201-239 mg/dl borderline riskChol 240 mg/dl and greater high riskCholesterol in LDL Calc [Mass/Vol]Ordered By: [facility] on 98-55-4902Nejbhgtgngh in LDL [Mass/Vol]116 mg/dL0-100[facility] CenterComment on above: LDL ATP III CLASSIFICATIONLDL less than 100 mg/dL OptimalLDL 100-129 mg/dL Near or above ffmtqbrRSB282-060 mg/dL Borderline highLDL 160-189 mg/dL HighLDL greater than 189 mg/dL Very highCholesterol in VLDL Calc [Mass/Vol]Ordered By: [facility] on 41-01-9123Qetnhgrnwmj in VLDL [Mass/Vol]21 mg/dLUniversity Hospitals Beachwood Medical CenterCreatinine and Glomerular filtration rate.predicted panel (S/P/Bld)Ordered By: [facility] on 64-57-3284Fygyrucejo [Mass/Vol]0.79 mg/dL0.44-1.03[facility] Medical CenterErythrocyte distribution width Auto (RBC) [Ratio]Ordered By: [facility] on 23-19-2574Yegxxgtmaqg distribution width (RBC) [Ratio]12.6 %11.9-15.3FParkview Health Estimated glomerular filtration rate (GFR) non- AmericanOrdered By: [facility] on 11-02-5947QFS/1.73 sq M.predicted among non-blacks MDRD (S/P/Bld) [Vol rate/Area]> 60 mL/MinUniversity Hospitals Beachwood Medical CenterHematocrit Auto (Bld) [Volume fraction]Ordered By: [facility] on 03-29-2022 Hematocrit (Bld) [Volume fraction]42.9 %34.0-46.4FParkview HealthHemoglobin [Mass/volume] in BloodOrdered By: [facility] on 35-73-9830Aobzxtlosn (Bld) [Mass/Vol]14.6 g/dL11.8-15.4FParkview HealthLipid Profile Outreach 65-85-0100Rtearllbjov [Mass/Vol]199 mg/dL Ieqdzc961-876IxrcasqnnUniversity Hospitals Beachwood Medical CenterComment on above:Result Comment: Chol less than 200 mg/dl low risk Chol 201-239 mg/dl borderline risk Chol 240 mg/dl and greater high riskPerformed By: #### OUTREACH LIPID, OUTREACH CMP, CBCNOOUTREACH #### [facility] [address] [place] [address] USACholesterol in HDL [Mass/Vol]62 mg/yAEpcrtt98-57DzkyeobjrUniversity Hospitals Beachwood Medical CenterComment on above:Result Comment: HDL CHOL ATP-III CLASSIFICATION Cardiovascular Risk HDL > or equal to 60 mg/dL LOW HDL < 40 mg/dL HIGHPerformed By: #### OUTREACH LIPID, OUTREACH CMP, CBCNOOUTREACH #### [facility] [address] [place] [address] USACholesterol.total/Cholesterol in HDL [Mass ratio]3.2 {ratio}Normal<5.0[facility] CenterComment on above:Result Comment: PERFORMED BY: [facility] [address] [place] [address] PATHOLOGIST SAFETY EQUIPMENT TESTER JESENIA RIVERA M.D.Performed By: #### OUTREACH LIPID, OUTREACH CMP, CBCNOOUTREACH #### [facility] [address] [place] [address] USALDL Cholesterol,Tjbazisiuv184 mg/dLHigh0-100[facility] CenterComment on above:Result Comment: LDL ATP III CLASSIFICATION LDL less than 100 mg/dL Optimal LDL 100-129 mg/dL Near or above optimal LDL 130-159 mg/dL Borderline high LDL 160-189 mg/dL High LDL greater than 189 mg/dL Very highPerformed By: #### OUTREACH LIPID, OUTREACH CMP, CBCNOOUTREACH #### [facility] [address] [place] [address] USATriglyceride w/Hibwda547 mg/rOScztir79-385WxjwfcfobUniversity Hospitals Beachwood Medical CenterComment on above:Result Comment: TRIG ATP III CLASSIFICATION TRIG less than 150 mg/dL Normal TRIG 150-199 mg/dL Borderline high TRIG 200-500 mg/dL High TRIG greater than 500 mg/dL Very high Standard traceable to the Center for Disease Conrtrol and Prevention (CDC) test method.Performed By: #### OUTREACH LIPID, OUTREACH CMP, CBCNOOUTREACH #### [facility] [address] [place] [address] USAVLDL ZWTBHURUUYN81 mg/dLNormSamaritan HospitalComment on above:Performed By: #### OUTREACH LIPID, OUTREACH CMP, CBCNOOUTREACH #### [facility] [address] [place] [address] [facility] Auto (RBC) [Entitic mass]Ordered By: [facility] on 49-85-7816WBV (RBC) [Entitic mass]32.1 pg24.7-34.3FSheltering Arms HospitalHC Auto (RBC) [Mass/Vol]Ordered By: [facility] on 11-14-7128BEGA (RBC) [Mass/Vol]34.0 g/dL32.0-35.0[facility] HospitalV Auto (RBC) [Entitic vol]Ordered By: [facility] on 03-29-2022 MCV (RBC) [Entitic vol]94.4 qG36-798BgecoepxqUniversity Hospitals Beachwood Medical CenterNo Panel InformationOrdered By: [facility] on 44-44-7624Zzyyxmaqu GFR ()> 60 mL/MinUniversity Hospitals Beachwood Medical CenterComment on above:GFR estimated reference range: According to KDOQI guidelines, <60 ml/min/1.73m2 is sufficient todiagnose a patient with chronic kidney disease.Pharmacy Creatinine Clearance (ChemN/[facility] Bing, MD, Cancer CenterTriglycerides Rcsedj741 mg/dL 35-149[facility] CenterComment on above:TRIG ATP III CLASSIFICATIONTRIG less than 150 mg/dL NormalTRIG 150-199 mg/dL Borderline highTRIG 200-500 mg/dL High TRIG greater than 500 mg/dL Very highStandard traceable to the Center for Disease Conrtrol and Prevention (CDC) test method. Platelet mean volume Auto (Bld) [Entitic vol]Ordered By: [facility] on 90-86-1909Ruinpnkh mean volume (Bld) [Entitic vol]8.5 fL6.3-10.7FParkview HealthPlatelets Auto (Bld) [#/Vol]Ordered By: [facility] on 82-48-2552Uhovyabjx (Bld) [#/Vol]279 10*3/jL588-767RongqtdxeUniversity Hospitals Beachwood Medical CenterProtein [Mass/volume] in Serum or PlasmaOrdered By: [facility] on 25-09-3994Yqcqnih [Mass/Vol]6.9 g/dL6.1-7.9[facility] Medical CenterRBC Auto (Bld) [#/Vol]Ordered By: [facility] on 07-09-0689ESY (Bld) [#/Vol]4.55 10*6/uL3.60-5.00[facility] Northerum or plasma alanine aminotransferase measurement without P-5'-P (enzymatic activiOrdered By: [facility] COMMUNITY on 36-46-9377XVK No additional P-5'-P [Catalytic activity/Vol]35 U/W44-70QicvqzstsPremier Health Miami [facility] Hospital Northerum or plasma alkaline phosphatase measurement (enzymatic activity/volume)Ordered By: [facility] on 59-06-2110RLD [Catalytic activity/Vol]56 U/L32-92 [facility] Northerum or plasma anion gap determinationOrdered By: [facility] on 03-77-4116Ueqdt gap [Moles/Vol]9.9 mmol/L6.0-15.0 [facility] Northerum or plasma aspartate aminotransferase measurement (enzymatic activity/volume)Ordered By: [facility] on 80-64-2177NOP [Catalytic activity/Vol]29 U/C20-15SzqlzotqvPremier Health Miami Valley Hospital Northerum or plasma calcium measurement (mass/volume)Ordered By: [facility] on 31-33-7956Xahmzck [Mass/Vol]9.5 mg/dL8.2-10.2FCleveland Clinic Medina Hospitalerum or plasma chloride measurement (moles/volume)Ordered By: [facility] on 98-29-4547Yivshsja [Moles/Vol]102 mmol/F40-432KdgffvmyvPremier Health Miami [facility] Hospital Northerum or plasma glucose measurement (mass/volume)Ordered By: [facility] on 43-64-4539Hxfvuhi [Mass/Vol]98 mg/dP89-481UccsvldatUniversity Hospitals Beachwood Medical CenterComment on above:ADA recommended reference rangeRandom Glucose Reference Range is dependent on time and content of last meal. Glucose of more than 200 mg/dL in a nonstressed, ambulatory subject supports the diagnosisof Diabetes Mellitus.Serum or plasma high density lipoprotein (HDL) cholesterol measurementOrdered By: [facility] on 36-21-7524Tiaiolysvns in HDL [Mass/Vol]62 mg/xT43-08SxlgeqetvUniversity Hospitals Beachwood Medical CenterComment on above: HDL CHOL ATP-III CLASSIFICATION Cardiovascular RiskHDL > or equal to 60 mg/dL LOWHDL < 40 mg/dL HIGHSerum or plasma potassium measurement (moles/volume) Ordered By: [facility] on 39-71-2096Xyveodrpr [Moles/Vol]4.0 mmol/L 3.5-5.1FCleveland Clinic Medina Hospitalerum or plasma sodium measurement (moles/volume)Ordered By: [facility] on 87-54-9917Motbiw [Moles/Vol]137 mmol/X527-485YhsyahkxrPremier Health Miami Valley Hospital Northerum or plasma total bilirubin measurement (mass/volume)Ordered By: [facility] on 92-47-9945Giavcwbba [Mass/Vol]0.6 mg/dL0.3-1.2FCleveland Clinic Medina Hospitalerum or plasma total carbon dioxide measurement (moles/volume)Ordered By: [facility] on 75-17-5844ZE7 [Moles/Vol]29.1 mmol/L22.0-30.0[facility] Serum or plasma total cholesterol/high density lipoprotein (HDL) cholesterol mass ratOrdered By: [facility] on 03-29-2022 Cholesterol.total/Cholesterol in HDL [Mass ratio]3.2 {ratio}<5.0[facility] Northerum or plasma urea nitrogen measurement (mass/volume) Ordered By: [facility] on 70-48-9580Bagf nitrogen [Mass/Vol]18 mg/dL9-23 [facility] Medical CenterWBC Auto (Bld) [#/Vol]Ordered By: [facility] on 57-18-7662ZKN (Bld) [#/Vol]7.2 10*3/uL3.8-11.6FParkview HealthMG MAMM SCREEN 3D DEANNA CADon 83-69-0266OF MAMM SCREEN 3D DEANNA CAD Patient: DANA DOBBINS Exam Date: 03/20/2022 : 1955 Gender:F Ordering : DR LUCIA LINDA . Admission #: [id number] Family : Order #: [id number] CLICK HERE TO VIEW EXAM RADIOLOGY REPORT PROCEDURE: MAMMOGRAM SCREENING 3D BILATERAL CAD COMPARISON: MG MAMM SCREEN 3D DEANNA CAD, 03/01/2021. MG MAMM SCREEN DEANNA W CAD, 02/28/2020. INDICATIONS: Screening mammography Calculator Name NCI Breast Cancer Risk Assessment Tool 5 Year Breast Cancer Risk 2.30% Lifetime Breast Cancer Risk 7.90% Personal Breast Cancer No Personal Ovarian Cancer No Treatments None Family Cancers None LOCATION: [facility] BREAST COMPOSITION: Heterogeneously dense,which may obscure small masses. FINDINGS: DIAGNOSTIC CATEGORY 1--NEGATIVE. RIGHT BREAST: No significant suspicious finding. No significant change has occurred. LEFT BREAST: No significant suspicious finding. No significant change has occurred. RECOMMENDATIONS: ROUTINE MAMMOGRAM AND CLINICAL EVALUATION IN 12 MONTHS. PLEASE NOTE: A NORMAL MAMMOGRAM DOES NOT EXCLUDE THE POSSIBILITY OF BREAST CANCER. A CLINICALLY SUSPICIOUS PALPABLE LUMP SHOULD BE BIOPSIED. Dictated by: Larry Gottlieb M.D. on 03/20/2022 at 14:07 Approved by: Larry Gottlieb M.D. on 03/20/2022 at 14:09[facility] Vital Signs Date TimeVital SignValuePerforming YlubmofizZebvtbhm73-18-2277 15:00-0400Body jeflaz624.48 cmCourtney Mendez APRN Work Phone: [facility]09-02-2025 15:00-0400 Body mass index (BMI) [Ratio]26.9 kg/t1MofxtdapCourtney Mendez APRN Work Phone: [phone] [place], [place] [address]9-02-2025 15:00-0400 Body ofxdhlzpfxo24.1 [degF]Courtney Hernandezjarad SENIOR SALES REPRESENTATIVE Work Phone: [phone] [place], [place] 130[address]109-02-2025 15:00-0400 Body ytdzjj11.67 kgCourtney Hernandeztanoacher SENIOR SALES REPRESENTATIVE Work Phone: [phone] [place], [place] 130[address]109-02-2025 15:00-0400 Diastolic blood kvqyorxl89 mm[Hg]Courtney Hernandezjarad SENIOR SALES REPRESENTATIVE Work Phone: [phone] [place], [place] 130[address]109-02-2025 15:00-0400 Systolic blood rkqquhqf810 mm[Hg]Courtney Andrea SENIOR SALES REPRESENTATIVE Work Phone: [phone] [place], [place] 1304108-25-2025 13:27-0400 Body sfjueq100.48 cmCourtney Hernandeztanojenniferboubacar SENIOR SALES REPRESENTATIVE Work Phone: [phone] [place], [place] 130[address]108-25-2025 13:27-0400 Body mass index (BMI) [Ratio]26.5 kg/b7QvqanlkzCourtney Henryr SENIOR SALES REPRESENTATIVE Work Phone: [phone] [place], [place] 130[address]108-25-2025 13:27-0400 Body vmgbczpwdvi80.8 [degF]Courtney Hernandezjarad SENIOR SALES REPRESENTATIVE Work Phone: [phone] [place], [place] 130[address]108-25-2025 13:27-0400 Body ggmlsy04.77 kgCourtney Mendez SENIOR SALES REPRESENTATIVE Work Phone: [phone] [place], [place] 130[address]108-25-2025 13:27-0400 Diastolic blood kszkipue71 mm[Hg]Courtney Andrea SENIOR SALES REPRESENTATIVE Work Phone: [phone] [place], [place] 1304108-25-2025 13:27-0400 Heart rate68 /minAlyrenaldodulce Andrea SENIOR SALES REPRESENTATIVE Work Phone: [phone] [place], [place] 130[address]108-25-2025 13:27-0400 SaO2% (BldA) [Mass fraction]95 %Courtney Andrea SENIOR SALES REPRESENTATIVE Work Phone: [facility]08-25-2025 13:27-0400 Systolic blood cczcautk474 mm[Hg]Courtney Andrea SENIOR SALES REPRESENTATIVE Work Phone: [facility]10-09-2024 09:35-0400 Body odxujk164.5 cmJr. Stepanic DO Work Phone: [facility] CenterOhaixbqlar97-44-7988 09:35-0400Body mass index (BMI) [Ratio]26.89 kg/m2Jr. Stepanic DO Work Phone: [facility] CenterAzcurwthrn60-90-3184 09:35-0400Body asxoht90.68 kgJr. Stepanic DO Work Phone: [facility] [phone] 10:03-0400Body .48 cmUniversity Hospitals [facility] Center08-26-2024 10:03-0400Body mass index (BMI) [Ratio]27.2 kg/x4SyggurrfvUniversity Hospitals Beachwood Medical Center08-26-2024 10:03-0400Body .58 kgUniversity Hospitals Beachwood Medical Center08-26-2024 10:03-0400Diastolic blood lxcgiwkv33 mm[Hg][facility]08-26-2024 10:03-0400 Heart rate70 /minUniversity Hospitals Beachwood Medical Center08-26-2024 10:03-8502NcZ0% (BldA) [Mass fraction]97 %[facility]08-26-2024 10:03-0400 Systolic blood lymqkwls931 mm[Hg][facility]10-03-2023 10:30-0400Body rqzwyq831.48 cmCourtney Mendez Other [employer] Other 10-03-2023 10:30-0400Body mass index (BMI) [Ratio] 27.43 kg/c8VsfkwtxmCourtney Blairacheboubacar Other [facility] Other 10-03-2023 10:30-0400Body .04 kgCourtney Mendez Other [facility] Other 10-03-2023 10:30-0400Diastolic blood aqrukoma99 mm[Hg] Courtney Andrea Other [facility] Other 10-03-2023 10:30-3342NwM8% (BldA) [Mass fraction]97 % Courtney Andrea Other [facility] Other 10-03-2023 10:30-0400Systolic blood hkccyfcr608 mm[Hg] Courtney Andrea Other [facility] Other 09-11-2023 12:25-0400Body wvavaa886.48 cmPamela Catrina Other [facility] Other 09-11-2023 12:25-0400Body mass index (BMI) [Ratio] 27.83 kg/v4Uqqgncpat Fritz Other [facility] Other 09-11-2023 12:25-0400Body .1 [degF]Faiza Catrina Other [facility] Other 09-11-2023 12:25-0400Body codudm20.04 kgPapat Fritz Other [employer] Other 09-11-2023 12:25-0400Diastolic blood mm[Hg] Faiza Catrina Other [employer] Other 09-11-2023 12:25-0400Respiratory rate18 /minPamela Catrina Other [employer] Other 09-11-2023 12:25-0174WuR4% (BldA) [Mass fraction]95 % Faiza Fritz Other [employer] Other 09-11-2023 12:25-0400Systolic blood hqwqawll534 mm[Hg] Faiza Fritz Other [employer] Other 03-24-2023 10:00-0400Body kgeibz572.48 cmAmbsagar Dexter Other [employer] Other 03-24-2023 10:00-0400Body mass index (BMI) [Ratio] 27.07 kg/s5YyijiJohnna Dexter Other [employer] Other 03-24-2023 10:00-0400Body wlleygddzmn00.4 [degF]Johnna Dexter Other [employer] Other 03-24-2023 10:00-0400Body gbdodz40.13 kgJohnna Dexter Other [employer] Other 03-24-2023 10:00-0400Respiratory rate18 /minJohnna Dexter Other [employer] Other 03-24-2023 10:00-4340EbA8% (BldA) [Mass fraction]97 % Johnna Dexter Other [employer] Other 05-02-2022 08:47-0400Blood Pressure [facility] 05-02-2022 08:47-0400Diastolic blood vdyowzkv88 mm[Hg] Puneet CHILDS [facility] 05-02-2022 08:47-0400Heart rate67 /minPatrick CHILDS [facility] 05-02-2022 08:47-0400Respiratory rate16 /minPatrick CHILDS [facility] 05-02-2022 08:47-0400Systolic blood qszwbdta500 mm[Hg] Puneet CHILDS [facility] Encounters Encounter DateEncounter TypeCare ProviderFacilityStart: 01-24-2025 End: 71-25-9555bspilpkpvjLuiswijd Rohrbacher APRN Work Phone: [facility] Work Phone: Start: 01-24-2025 End: 58-94-3267Vhtjixh encounter procedureAlynndulce Mendez APRN, CNP-[facility] Work Phone: Start: 87-93-1458Kwg-patient / Non-visitCourtney Mendez APRN, CNP-[facility] Work Phone: Start: 01-18-2025 End: 80-99-0463nmoqjqfyvlKcamsd TannaFacility:EU BellevueStart: 01-18-2025 End: 70-66-9659Mhhzwmm encounter procedureLamary Robledo [facility] start: 01-16-2025 End: 93-20-9069jvopnhxhyqNwapfoxn Rohrbacher APRN Work Phone: [facility] Work Phone: Start: 01-16-2025 End: 84-45-5053Eobojxj encounter procedureCourtney Mendez APRN [facility] Work Phone: Start: 03-02-2024 End: 59-28-8569Cblrmk flowsheetJr. Dallin Cespedes DO Work Phone: [facility] ORTHOStart: 03-02-2024 End: 76-29-2777Liiemd flowsheetJr. Dallin Cespedes DO Work Phone: [facility] ORTHOStart: 03-02-2024 End: 87-43-5946yntoonfilcPI., DALLIN CESPEDESNot AvailableStart: 03-02-2024 End: 01-13-0640Rtrdqr outpatient visit 25 minutesJr. Dallin Cespedes DO Work Phone: [facility] ORTHOComment on above:Pain of right hip; Pain of left hip; History of bilateral total hip arthroplastyStart: 02-17-2024 End: 09-85-0180Twovku outpatient new 30 minutesEmdede Branham MD Work Phone: [facility] DERMComment on above:Actinic keratosis (Primary Dx); Seborrheic keratosis, inflamedStart: 02-17-2024 End: 96-18-9778dgggzdmzowVDKPO A PETITTINot AvailableStart: 02-17-2024 End: 69-45-2592Einbmz flowsheetJennifer Branham MD Work Phone: [facility] DERMStart: 02-17-2024 End: 74-03-7920Nrghmo flowsheetJennifer Branham MD Work Phone: [facility] DERMStart: 01-18-2024 End: 27-33-9581priwdpqcowGotwqaaqz [facility] Work Phone: Start: 01-18-2024 End: 30-71-8924Wtnytdj [facility] Work Phone: Start: 05-28-2023 End: 12-61-7139ivhcugrtthKccbqsuo Rohrbacher Other [employer] Other Start: 11-87-7390Qzfnjxuvq encounterJennifer RohrbacherFPG [facility]art: 04-24-2023 End: 68-74-5748glasexjnuqEymnxktc Rohrbacher Other [employer] Other Start: 97-17-6374Lzzmpxpfz encounterJennifer RohrbacherFPG [facility]ertart: 04-21-2023 End: 15-44-0818Duwbqjp encounter procedureJENNIFER E ISABELLE [facility] start: 03-30-2023 End: 73-26-0883yylxeamexzFsbitmfb Rohrbacher Other [employer] Other Start: 03-99-3998Snrflcjmh encounterJennifer RohrbacherFPG [facility]ertart: 03-23-2023 End: 46-14-9438ukaaujnlweHyxdcdfp Rohrbacher Other [employer] Other Start: 52-75-5279Wdfwqxoiv encounterJennifer RohrbacherFPG [facility]ertart: 02-24-2023 End: 96-86-5792ktpabaejjlQapbuyri Rohrbacher Other [employer] Other Start: 18-19-1234Rhzkpfo encounter procedureJenndulce HernandezrbacherFPG [facility] ClinicStart: 02-02-2023 End: 50-72-0285jgqslfeoetAxvdpu Catrina Other [facility] [employer] Other Start: 40-70-8201Bnjhuq outpatient visit 10 minutes Faiza CatrinaFPG [facility]deStart: 08-15-2022 End: 26-03-4005oaqrmxreqwSrquh Keller Other [facility] [employer] Other Start: 32-13-6368Qctomu outpatient visit 25 minutes Johnna DexterCHAD [facility] ClydeStart: 03-29-2022 End: 37-45-0921ntjhrxhcvuWyu E KnightFacility:[facility] Start: 03-29-2022 End: 91-45-7061hmndwnhuwhQQ Kim E Knight Work Phone: [facility] Work Phone: Start: 03-29-2022 End: 62-60-2091Escnvkki ReferredMD Lucia Linda Work Phone: [facility] Start: 03-20-2022 End: 98-56-9230boslztxfmmIL KIM E KNIGHTFacility:Y8Qhimw: 09-23-2021 End: 42-97-3968Uwcronf encounter procedurePareinaldo CHILDS [facility] Procedures DateProcedureProcedure DetailPerforming ClinicianStart: 02-60-5720VTMFQEBOWWO SKIN LESIONEmdede Branham MD Work Phone: Start: 94-64-2385Ouivvlay of urethraPatrick SHARI Start: 36-66-0723Rnudxqet of urethraPatrick SHARI Start: 37-86-4077Tedpxtydgcjlxjupd with dilation of urethral stricturePatrick CHILDS CholecystectomyPaeastern state hospitalk CHILDS ColonoscopyPatrick CHILDS Prosthetic arthroplasty of the hipPatrick SHARI Plan of Treatment DateCare ActivityDetailAuthorStart: 02-28-2026 End: 76-85-0589Irwykag encounter baanjtgkj32/07/2026 9:30 AM EDT Office Visit [facility] [address] [place] [phone] Jr. Dallin Cespedes, DO [address] [place] [address] [facility]OStart: 03-02-2024 End: 19-94-9464Liwoofi encounter mdugovodn78/09/2024 9:30 AM EDT Office Visit [facility] [address] [place] [phone] Jr. Dallin Cespedes, DO [address] [facility] [address] [place] [address] [facility] OR[facility]OStart: 02-17-2024 End: 85-73-1646Uwuyrxb encounter rhbnelual41/25/2024 3:50 PM EDT Office Visit [facility] [address] [place] [phone] Jennifer Branham MD [address] [place] [address] ArrivedNOMS [facility]NEY [facility]ITAL DERMComment on above:ArrivedStart: 08-87-1186Nfahjqdvw vaccinationInfluenza Vaccine (#1)[facility] HealthcareStart: 59-61-4144Ksvnydgqavsk Vaccine: 65+ Years (2 of 2 - PCV)Pneumococcal Vaccine: 65+ Years (2 of 2 - PCV)[facility] HealthcareStart: 14-52-2202Ossdujwrm for malignant neoplasm of breastMammogramNOLA HealthcareStart: 48-70-3857Tmwkpkwyi for malignant neoplasm of colonNOLA HealthcareComprehensive metabolic 2000 panel - Serum or PlasmaUniversity Hospitals Beachwood Medical CenterMG Breast - bilateral Screening [facility] CenterXR Hip - left 3 ViewsXR hip left 2 or 3 views Imaging Routine Pain of left hip 03/02/2024 9[facility] HealthcareXR Hip - right 3 ViewsXR hip right 2 or 3 views Imaging Routine Pain of right hip 03/02/2024 9:38 [facility] Work Phone: [facility] Immunizations Immunization DateImmunizationNotesCare UpoebwaeMjbgchye52-92-8015aakbmau toxoid, reduced diphtheria toxoid, and acellular pertussis vaccine, adsorbedLauren Meena [facility]10-14-2024influenza virus vaccine, unspecified formulationLauren Meena [facility]01-02-2024RSV vaccine preF3, recombinantLauren Meena [facility]10-03-2023influenza virus vaccine, unspecified formulationUniversity Hospitals Beachwood Medical Center10-03-2023influenza, high dose seasonal, preservative-freeCourtney Mendez Other [place] [employer] Other [id number] virus vaccine, unspecified formulationCOURTNEY ISABELLE [facility]10-03-2022Flu Shot - Documentation Purposes OnlyCourtney Mendez Other [facility]09-22-2022COVID-19 Moderna (BIvalent)Courtney Mendez Other [facility] on above:Result Comment: 2022-03-28: GPQ0182-01-2057ZSCDR-26 ModernaAlynnifer Rohrbacher Other [facility] on above:Result Comment: 2022-03-28: EZN2312-01-0941IKGCJ-70 ModernaAlynnifer Rohrbacher Other [facility] on above:Result Comment: 2022-03-28: XFX3358-08-8995pwrdsamqv virus vaccine, unspecified formulationJENNIFER ISABELLE [facility]07-22-2021zoster vaccine recombinantAlynnifer Rohrbacher Other [facility]04-12-2021SARS-CoV-2 (COVID-19) Ad26 vaccine, recombinantPatrick CHILDS [facility] [id number]-22 ModernaGloriaifer Rohrbacher Other [facility]02-11-2021COVID-19 ModernaAlynnifer Rohrbacher Other [facility]09-17-2020influenza virus vaccine, unspecified formulationJENNIFER ISABELLE [facility]06-19-2020pneumococcal polysaccharide vaccine, 23 valentJennifer Rohrbacher Other [facility]10-14-2019influenza virus vaccine, unspecified formulationJENNIFER ISABELLE [facility]10-14-2019influenza, seasonal, injectableCourtney Andrea Other [facility]10-26-2017influenza virus vaccine, unspecified formulationCOURTNEY ISBAELLE [facility]10-26-2017influenza, injectable, quadrivalent, contains preservative Courtney Andrea Other [facility]10-01-2015influenza virus vaccine, unspecified formulationUrsula Robledo [facility] Payers DatePayer CategoryPayerPolicy [id number] AARP [id number] 2023- Present [address] [place] [address] [id number] 2022Self-pay2021Medicare [id number] Health Insurance [id number] 2020Medicare [id number] [id number] 1960 [id number] [id number] 2.16.840.1.845848.3.57[id number] 2.16.840.1.723428.3.57[id number] 2..840.1.799102.3.57[id number] 2.16.840.1.967803.3.57[id number] 2.16.840.1.5[id number] 2..840.1.413018.3.579.2.531 UnknownAnthem /[id number] Social History DateTypeDetailFacilityStart: 12-31-2020 End: 38-56-6919Ecpkerd smoking statusLight tobacco smoker (finding)[facility] start: 02-17-2024 End: 22-62-6264Lxb Assigned At BirthFemaleExec[facility] of [facility] start: 30-72-6412Hwp Assigned At BirthFeLutheran Hospitaltart: 89-53-7480Redlgyh smoking status NHISSmoker (finding)[facility] Northtart: 33-95-3407Lnwlwcp smoking status NHISNever smoked tobaccoNOMS HealthcareStart: 53-48-3706Qfxxmmv use and exposureSmokeless tobacco non-userNOMS HealthcareStart: 02-17-2024 End: 13-97-4739Hegbacb of Social functionNOMS HealthcareStart: 21-82-4654Dbs assigned at birthNot on fileNOMS HealthcareTobacco smoking status NHISTobacco smoking consumption unknownNOMS HealthcareStart: 02-59-1104Efswaem smoking status NHISSmokes tobacco daily (finding)[facility] Northtart: 40-17-7275UncQsomvo (finding)[facility] Northexual OrientationExec[facility] Functional Status NwlbIwptoxvyvvSobyrhDgdxvqfx60-27-8758Flimlqlezc StatusN/AExec[facility] Clinical Notes 09-23-2021 to 01-18-2025 Note Date & CqcqKaraDdxhkvmf84-89-6591 Hospital Discharge instructions Patient Education 01/18/2025 11:21:18 Atrophic Vaginitis Atrophic Vaginitis Atrophic vaginitis is a condition in which the tissues that line the vagina become dry and thin. This condition is most common in women who have stopped having regular menstrual periods (are in menopause). This usually starts when a woman is 45 to 55 years old. That is the time when a woman's estrogen levels begin to decrease. Estrogen is a female hormone. It helps to keep the tissues of the vagina moist. It stimulates the vagina to produce a clear fluid that lubricates the vagina for sex. This fluid also protects the vagina from infection. Lack of estrogen can cause the lining of the vagina to get thinner and dryer. Thevagina may also shrink in size. It may become less elastic. Atrophic vaginitis tends to get worse over time as a woman's estrogen level drops. What are the causes? This condition is caused by the normal drop in estrogen that happens around the time of menopause. What increases the risk? Certain conditions or situations may lower a woman's estrogen level, leading to a higher risk for atrophic vaginitis. You are more likely to develop this condition if: You are taking medicines that block estrogen. You have had your ovaries removed. You are being treated for cancer with radiation or medicines (chemotherapy). You have given or are . You are older than age 50. You smoke. What are the signs or symptoms? Symptoms of this condition include: Pain, soreness, a feeling of pressure, or bleeding during sex (dyspareunia). Vaginal burning, irritation, or itching. Pain or bleeding when a speculum is used in a vaginal exam. Having burning pain while urinating. Vaginal discharge. In some cases, there are no symptoms. How is this diagnosed? This condition is diagnosed based on your medical history and a physical exam. This will include a pelvic exam that checks the vaginal tissues. Though rare, you may also have other tests, including: A urine test. A test that checks the acid balance in your vagina (acid balance test). How is this treated? Treatment for this condition depends on how severe your symptoms are. Treatment may include: Using an zdzw-pva-wyhelhb vaginal lubricant before sex. Using a long-acting vaginal moisturizer. Using low-dose estrogen for moderate to severe symptoms that do not respond to other treatments. Options include creams, tablets, and inserts (vaginal rings). Before you use a vaginal estrogen, tell your health care provider if you have a history of: ?Breast cancer. ?Endometrial cancer. ?Blood clots. If you are not sexually active and your symptoms are very mild, you may not need treatment. Follow these instructions at home: Medicines Take fnyb-oxs-tgzenjd and prescription medicines only as told by your health care provider. Do not use herbal or alternative medicines unless your health care provider says that you can. Use esrn-ddz-cdyxiyl creams, lubricants, or moisturizers for dryness only as told by your health care provider. General instructions If your atrophic vaginitis is caused by menopause, discuss all of your menopause symptoms and treatment options with your health care provider. Do not douche. Do not use products that can make your vagina dry. These include: ?Scented feminine sprays. ?Scented tampons. ?Scented soaps. Vaginal sex can help to improve blood flow and elasticity of vaginal tissue. If you choose to have sex and it hurts, try using a water-soluble lubricant or moisturizer right before having sex. Contact a health care provider if: Your discharge looks different than normal. Your vagina has an unusual smell. You have new symptoms. Your symptoms do not improve with treatment. Your symptoms get worse. Summary Atrophic vaginitis is a condition in which the tissues that line the vagina become dry and thin. Itis most common in women who have stopped having regular menstrual periods (are in menopause). Treatment options include using vaginal lubricants and low-dose vaginal estrogen. Contact a health care provider if your vagina has an unusual smell, or if your symptoms get worse or do not improve after treatment. This information is not intended to replace advice given to you by your health care provider. Make sure you discuss any questions you have with your health care provider. Document Revised: 11/08/2020 Document Reviewed: 11/08/2020 [employer] Patient Education 2023 [employer]. Follow Up Care 01/17/2025 11:52:35 With:Ursula Robledo PA-C, URL Address: When:Within 1 Year(s) [facility] 08-27-2025 NotePatient Education Obstetrics and Gynecology Atrophic Vaginitis Atrophic vaginitis is a condition in which the tissues that line the vagina become dry and thin. This condition is most common in women who have stopped having regular menstrual periods (are in menopause). This usually starts when a woman is 45 to 55 years old. That is the time when a woman's estrogen levels begin to decrease. Estrogen is a female hormone. It helps to keep the tissues of the vagina moist. It stimulates the vagina to produce a clear fluid that lubricates the vagina for sex. This fluid also protects the vagina from infection. Lack of estrogen can cause the lining of the vagina to get thinner and dryer. Thevagina may also shrink in size. It may become less elastic. Atrophic vaginitis tends to get worse over time as a woman's estrogen level drops. What are the causes? This condition is caused by the normal drop in estrogen that happens around the time of menopause. What increases the risk? Certain conditions or situations may lower a woman's estrogen level, leading to a higher risk for atrophic vaginitis. You are more likely to develop this condition if: ??? You are taking medicines that block estrogen. ??? You have had your ovaries removed. ??? You are being treated for cancer with radiation or medicines (chemotherapy). ??? You have given or are . ??? You are older than age 50. ??? You smoke. What are the signs or symptoms? Symptoms of this condition include: ??? Pain, soreness, a feeling of pressure, or bleeding during sex (dyspareunia). ??? Vaginal burning, irritation, or itching. ??? Pain or bleeding when a speculum is used in a vaginal exam. ??? Having burning pain while urinating. ??? Vaginal discharge. In some cases, there are no symptoms. How is this diagnosed? This condition is diagnosed based on your medical history and a physical exam. This will include a pelvic exam that checks the vaginal tissues. Though rare, you may also have other tests, including: ??? A urine test. ??? A test that checks the acid balance in your vagina (acid balance test). How is this treated? Treatment for this condition depends on how severe your symptoms are. Treatment may include: ??? Using an hzti-plt-gxapjtf vaginal lubricant before sex. ??? Using a long-acting vaginal moisturizer. ??? Using low-dose estrogen for moderate to severe symptoms that do not respond to other treatments. Options include creams, tablets, and inserts (vaginal rings). Before you use a vaginal estrogen, tell your health care provider if you have a history of: ? Breast cancer. ? Endometrial cancer. ? Blood clots. If you are not sexually active and your symptoms are very mild, you may not need treatment. Follow these instructions at home: Medicines ??? Take xinr-cjm-eigjess and prescription medicines only as told by your health care provider. ??? Do not use herbal or alternative medicines unless your health care provider says that you can. ??? Use hfnr-plr-nauiqhm creams, lubricants, or moisturizers for dryness only as told by your health care provider. General instructions ??? If your atrophic vaginitis is caused by menopause, discuss all of your menopause symptoms and treatment options with your health care provider. ??? Do not douche. ??? Do not use products that can make your vagina dry. These include: ? Scented feminine sprays. ? Scented tampons. ? Scented soaps. ??? Vaginal sex can help to improve blood flow and elasticity of vaginal tissue. If you choose to have sex and it hurts, try using a water-soluble lubricant or moisturizer right before having sex. Contact a health care provider if: ??? Your discharge looks different than normal. ??? Your vagina has an unusual smell. ??? You have new symptoms. ??? Your symptoms do not improve with treatment. ??? Your symptoms get worse. Summary ??? Atrophic vaginitis is a condition in which the tissues that line the vagina become dry and thin. It is most common in women who have stopped having regular menstrual periods (are in menopause). ??? Treatment options include using vaginal lubricants and low-dose vaginal estrogen. ??? Contact a health care provider if your vagina has an unusual smell, or if your symptoms get worse or do not improve after treatment. This information is not intended to replace advice given to you by your health care provider. Make sure you discuss any questions you have with your health care provider. Document Revised: 11/08/2020 Document Reviewed: 11/08/2020 [employer] Patient Education ? 2023 [employer] 01-16-2025 Evaluation note* Diagnosis Onset Date Resolution Status Admit Date BMI 26.0-26.9,adult acuteAugust 2024 1:26pmHypertensionacuteAugust 2024 1:26pmInsomnia acuteAugust 2024 1:26pmMedicare annual wellness visit, subsequentacute [place] 2024 1:26pmMixed hyperlipidemiaacuteAugus2024 1:26pm Screening for breast canceracuteAugus2024 1:26pm [facility] Work Phone: 1(205) 402-684910-09-2024 History of Present illness Narrative* Jr. Dallin Cespedes, - 03/02/2024 9:30 AM EDT Images from the original note were not included. HISTORY OF PRESENT ILLNESS: EST PT Dana Dobbins is an 68 y.o. @ female. (L) HIP (EST PT) HERE FOR BIENNIAL CHECK OF (L) DANIELLE 07/23/15 (~8.5YRS) XRAYS DONE TODAY, 03/02/24 IN [facility] NO BONE SCAN NO MDP / PREDNISONE FINISHED PHYSICAL THERAPY ; POST-OP NO PAIN MGMT DOING WELL - DENIES ANY CURRENT DISCOMFORT. SOME STIFFNESS AFTER PROLONGED WALKING - OTHERWISE NOTES GOOD ROM ; DENIES ANY INSTABILITY. NO SWELLING. (R) HIP (EST PT) HERE FOR BIENNIAL CHECK OF (R) DANIELLE 2012 (~11YRS) XRAYS DONE TODAY, 03/02/24 IN [facility] NO BONE SCAN NO MDP / PREDNISONE FINISHED PHYSICAL THERAPY ; POST-OP NO PAIN MGMT DOING WELL - DENIES ANY CURRENT DISCOMFORT. SOME STIFFNESS AFTER PROLONGED WALKING - OTHERWISE NOTES GOOD ROM ; DENIES ANY INSTABILITY. NO SWELLING. ALLERGIES: No Known Allergies HOME MEDICATIONS: Current Outpatient Medications Medication Instructions ASPIRIN 81 PO Aspir-81 atorvastatin (Lipitor) 20 MG tablet bisoprolol-hydroCHLOROthiazide (Ziac) 5-6.25 MG tablet 1 tablet calcium 200 MG tablet Calcium estradiol (Estrace) 0.1 MG/GM vaginal cream APPLY 1 GRAM VAGINALLY THURSDAY and THURSDAY fluorouracil (Efudex) 5 % cream Apply to directed areas on the chest twice a day x 14 days. Dispense 30 day supply but only use for 14 days. PHYSICAL EXAM: Hip Musculoskeletal Exam Gait Gait is normal. Inspection Leg length disparity: no discrepancy Right Erythema: none Ecchymosis: none Edema: none Deformity: none Previous incision: anterolateral Incision: well-healed Left Erythema: none Ecchymosis: none Edema: none Deformity: none Previous incision: anterolateral Incision: well-healed Palpation Right Right hip palpation is normal. Increased warmth: none Tenderness: none Left Left hip palpation is normal. Increased warmth: none Tenderness: none Range of Motion Right Right hip range of motion is within functional limits. Active ROM: normal. Passive ROM: normal. Left Left hip range of motion is within functional limits. Active ROM: normal. Passive ROM: normal. Strength Right Right hip strength is normal. Extension: 5/5. Flexion: 5/5. Internal rotation: 5/5. External rotation: 5/5. Adduction: 5/5. Abduction: 5/5. Left Left hip strength is normal. Extension: 5/5. Flexion: 5/5. Internal rotation: 5/5. External rotation: 5/5. Adduction: 5/5. Abduction: 5/5. Neurovascular Right Right hip neurovascular exam is normal. Pulses - PT: normal Posterior tibial: 2+ Left Left hip neurovascular exam is normal. Pulses - PT: normal Posterior tibial: 2+ Vitals: Body mass index is 26.89 kg/m . Tobacco Use: Low Risk (03/02/2024) Patient History Smoking Tobacco Use: Never Smokeless Tobacco Use: Never Passive Exposure: Not on file Alcohol Use: Not on file IMAGING: Procedures Orders Placed This Encounter Procedures XR hip right 2 or 3 views Order Specific Question: Reason for exam: Answer: POST-OP XR hip left 2 or 3 views Order Specific Question: Reason for exam: Answer: POST-OP ASSESSMENT: ICD-10-CM 1. Pain of right hip M25.551 XR hip right 2 or 3 views 2. Pain of left hip M25.552 XR hip left 2 or 3 views 3. History of bilateral total hip arthroplasty Z96.643 PLAN: We have answered all the patients questions and explained the patients condition, decision making and plan including the risks and benefits associated with said plan in layman''s terms in a language the patient could understand easily. If patient''s symptoms significantly worsen and they cannot get a hold of us or their family physician, we have recommended that the patient proceed to the nearest emergency department (room). Dr. Cespedes obtained history and examined the patient, I am acting as scribe for Dr. Cespedes/radha, PLAN: We have discussed b/l hip xrays with patient at bedside. Patient is pleased with her b/l hip progress as she admits her b/l hips are better now than they were prior to sx. She has good strength/ ROM of her b/l hips with examination today. We have discussed her HEP and restrictions and will see her back in 2 years to reassess her b/l hips with repeat xrays. Dallin Cespedes D.O. documented in this encounterMoberly [facility] [id number] History of Present illness Narrative* Jennifer Branham MD - 02/17/2024 3:50 PM EDT Lesions: Location: back Duration: years Quality: painful Modifying factors: rubs on clothing Associated symptoms: enlarged, rough Treatments: none New patient All pertinent medical history, medications, and allergies were reviewed. General Exam: alert , oriented to person, place, and time , normal affect, well appearing Unaccompanied A focused exam completed based on patient reported problems, see below: 1. Actinic keratosis Chest (Upper Torso, Anterior) Erythematous scaly papules Patient was counseled regarding these sun-induced growths that can develop into squamous cell carcinoma if left untreated. Discussed treatment options, including cryotherapy and topical preparations.It was emphasized that any treated lesions that fail to resolve should be re-evaluated. Patient elected for treatment with Efudex as this has become a chronic issue. Educated on Efudex treatment. Apply to Chest twice a day for two weeks. Discussed that treated areas will become red, crusty, and inflamed. If areas become too uncomfortable, patient may use OTC hydrocortisone cream to help decrease irritation and can discontinue treatment early. Sun exposure should be avoided during treatment. Patient instructed to contact office for any questions or issues during treatment. Lesions that fail toresolve once treated area is healed should be re- evaluated in the office. Handout given to patient fluorouracil (Efudex) 5 % cream - Chest (Upper Torso, Anterior) Apply to directed areas on the chest twice a day x 14 days. Dispense 30 day supply but only use for14 days. 2. Seborrheic keratosis, inflamed (3) Left Lower Back, Left Upper Back, Right Lower Back [place] and brown stuck on verrucous scaly papule with surrounding erythema The patient was informed that symptomatic seborrheic keratoses are benign growths that become inflamed, itchy, tender, traumatized, caught on clothing, or bleed. Symptomatic lesions can be treated with cryotherapy or curretage. Thicker lesions treated with cryotherapy may require more than one treatment. The patient was instructed to notify the office if abnormal redness or tenderness develops atthe treatment site. Cryotherapy today, see procedure note. Diagnosis: Inflamed seborrheic keratosis Indication: Inflamed Consent: Verbal consent was obtained and risks were discussed, including, but not limited to risks of scarring, darker or stuffer pigmentary changes, recurrence, incomplete removal and infection. Method: Liquid nitrogen was used to treat the lesion(s) with two 5-10 second freeze-thaw cycles Number of lesions treated: 3 Post-procedure instructions: Instructions were given orally and in writing. The office will be contacted if the lesion fails to resolve despite treatment, or if a side effect develops such as abnormal crusting, scabbing, redness or tenderness Cryotherapy, skin lesion - Left Lower Back, Left Upper Back, Right Lower Back Next Visit: rec pt schedule FBSE documented in this encounterMoberly [facility] [id number] Evaluation note* Encounter Date Diagnosis Assessment Notes Treatment Notes Treatment Clinical Notes May, Primary insomnia (ICD-10 - F51.0 1) May,Mixed hyperlipidemia (ICD-10 - E78.2) May,rimary hypertension (ICD-10 - I10) [facility] Other 12-01-2023 Evaluation note* Encounter Date Diagnosis Assessment Notes Treatment Notes Treatment Clinical Notes Apr, Need for antibiotic prophylaxis for dental procedure (ICD-10 - Z79.2) [facility] Other 11-28-2023 Hospital Discharge instructions Patient Education 04/21/2023 15:59:42 Atrophic Vaginitis Atrophic Vaginitis Atrophic vaginitis is a condition in which the tissues that line the vagina become dry and thin. This condition is most common in women who have stopped having regular menstrual periods (are in menopause). This usually starts when a woman is 45 to 55 years old. That is the time when a woman's estrogen levels begin to decrease. Estrogen is a female hormone. It helps to keep the tissues of the vagina moist. It stimulates the vagina to produce a clear fluid that lubricates the vagina for sex. This fluid also protects the vagina from infection. Lack of estrogen can cause the lining of the vagina to get thinner and dryer. Thevagina may also shrink in size. It may become less elastic. Atrophic vaginitis tends to get worse over time as a woman's estrogen level drops. What are the causes? This condition is caused by the normal drop in estrogen that happens around the time of menopause. What increases the risk? Certain conditions or situations may lower a woman's estrogen level, leading to a higher risk for atrophic vaginitis. You are more likely to develop this condition if: You are taking medicines that block estrogen. You have had your ovaries removed. You are being treated for cancer with radiation or medicines (chemotherapy). You have given or are . You are older than age 50. You smoke. What are the signs or symptoms? Symptoms of this condition include: Pain, soreness, a feeling of pressure, or bleeding during sex (dyspareunia). Vaginal burning, irritation, or itching. Pain or bleeding when a speculum is used in a vaginal exam. Having burning pain while urinating. Vaginal discharge. In some cases, there are no symptoms. How is this diagnosed? This condition is diagnosed based on your medical history and a physical exam. This will include a pelvic exam that checks the vaginal tissues. Though rare, you may also have other tests, including: A urine test. A test that checks the acid balance in your vagina (acid balance test). How is this treated? Treatment for this condition depends on how severe your symptoms are. Treatment may include: Using an dmqj-sir-isrowsc vaginal lubricant before sex. Using a long-acting vaginal moisturizer. Using low-dose estrogen for moderate to severe symptoms that do not respond to other treatments. Options include creams, tablets, and inserts (vaginal rings). Before you use a vaginal estrogen, tell your health care provider if you have a history of: ?Breast cancer. ?Endometrial cancer. ?Blood clots. If you are not sexually active and your symptoms are very mild, you may not need treatment. Follow these instructions at home: Medicines Take ovdv-ezm-hecflmv and prescription medicines only as told by your health care provider. Do not use herbal or alternative medicines unless your health care provider says that you can. Use hvyh-gfq-oeyuumq creams, lubricants, or moisturizers for dryness only as told by your health care provider. General instructions If your atrophic vaginitis is caused by menopause, discuss all of your menopause symptoms and treatment options with your health care provider. Do not douche. Do not use products that can make your vagina dry. These include: ?Scented feminine sprays. ?Scented tampons. ?Scented soaps. Vaginal sex can help to improve blood flow and elasticity of vaginal tissue. If you choose to have sex and it hurts, try using a water-soluble lubricant or moisturizer right before having sex. Contact a health care provider if: Your discharge looks different than normal. Your vagina has an unusual smell. You have new symptoms. Your symptoms do not improve with treatment. Your symptoms get worse. Summary Atrophic vaginitis is a condition in which the tissues that line the vagina become dry and thin. Itis most common in women who have stopped having regular menstrual periods (are in menopause). Treatment options include using vaginal lubricants and low-dose vaginal estrogen. Contact a health care provider if your vagina has an unusual smell, or if your symptoms get worse or do not improve after treatment. This information is not intended to replace advice given to you by your health care provider. Make sure you discuss any questions you have with your health care provider. Document Revised: 11/08/2020 Document Reviewed: 11/08/2020 [employer] Patient Education 2022 [employer]. Follow Up Care 03/28/2022 09:15:00 With:COURTNEY WALTON PA-C, URL Address: [address] [address] Business (1) When: only if needed [facility] 10-03-2023 Evaluation note* Encounter Date Diagnosis Assessment Notes Treatment Notes Treatment Clinical Notes Feb, Primary hypertension (ICD-10 - I 10) To goal. Prior to your visit today we reviewed your chart and outlined the tetsing and treatment needed for your care. We discussed the possible complications of high blood pressure, including increased risk for heart disease, stroke, and kidney disease. Our goal is to keep your blood pressure below 130/85 (an preferably < 120/80) and maintain a healthy weight with a BMI less than 26. We are working together to acheive these goals with the following plan; healthier diet, increased activity and exercise, understanding your medicaitons, and your complaince. You have been given relevant education handouts. Feb,Medicare annual wellness visit, initial (ICD-10 - Z00.00) Personalized health advice was given to the beneficiary with a referral, if appropriate, to health education of preventative counseling services or programs aimed at reducing identified risk factors and improving self-management or community-based lifestyle interventions to reduce health risks and promote self- management and wellness, including weight loss, physical activity, smoking cessation, fall prevention and nutrition. A written plan for screenings discussed, including colonoscopy, mammography, flu vaccination, other vaccinations if at risk, routine lab studies, eye exams, glaucoma screening, skin checks, risk factors for medical problems discussed, including BP control, obesity, and need for consistent exercise. Advanced care planning reviewed. Counseling was provided here today - specifically in regard to any positively answered questions as noted above. Feb,Mixed hyperlipidemia (ICD-10 - E78.2)Due for labs. Feb,rimary insomnia (ICD-10 - F51.01)Stable on current medicaiton, denies any side effects. Feb,Recurrent urinary tract infection (ICD-10 - N39.0)She is under the care of Dr Childs and follows with him yealry. He prescribes estradiol cream and this has been helpful with preventing UTIs. [facility] Other 09-11-2023 Evaluation note* Encounter Date Diagnosis Assessment Notes Treatment Notes Treatment Clinical Notes Jan, Bee sting reaction, accidental or unintentional, initial encounter (ICD-10 - T63.441A) Insect bites and stings home care material was printed Drink plenty fluids, get plenty of rest. Take the prednisone as prescribed until gone starting tomorrow. Continue home medications as prescribed. Apply cool compress to your eye 2-3 times a day. TakeBenadryl once or twice a day for itching and redness. Follow-up with your family physician if no improvement in 2 to 3 days [facility] Other 03-24-2023 Evaluation note* Encounter Date Diagnosis Assessment Notes Treatment Notes Treatment Clinical Notes Jul, Seasonal allergic rhinitis, unsp ecified trigger (ICD-10 - J30.2) No testing performed today. Discussed diagnosis with patient. Will send in rx of Flonase and Cetirizine to use as directed. Supportive care as directed, increase fluids and rest, Tylenol/Motrin as directed, cool mist humidifier, throat lozenges. Patient to follow up with PCP if symptoms persist or worsen despite treatment. Immediate eval for SOB, difficulty, chest pain, fevers that do not break with antipyretic or any other concerning symptoms as reviewed on patient education handout. Patient verbalizes understanding and is agreeable to treatment plan. Patient left in stable condition [facility] Other 05-02-2022 Hospital Discharge instructions Patient Education 09/23/2021 09:16:50 Calorie Counting for Weight Loss Calorie Counting for Weight Loss Calories are units of energy. Your body needs a certain amount of calories from food to keep you going throughout the day. When you eat more calories than your body needs, your body stores the extra calories as fat. When you eat fewer calories than your body needs, your body david fat to get the energy it needs. Calorie counting means keeping track of how many calories you eat and drink each day. Calorie counting can be helpful if you need to lose weight. If you make sure to eat fewer calories than your bodyneeds, you should lose weight. Ask your health care provider what a healthy weight is for you. For calorie counting to work, you will need to eat the right number of calories in a day in order to lose a healthy amount of weight per week. A dietitian can help you determine how many calories youneed in a day and will give you suggestions on how to reach your calorie goal. A healthy amount of weight to lose per week is usually 1 2 lb (0.5 0.9 kg). This usually means thatyour daily calorie intake should be reduced by 500 750 calories. Eating 1,200 1,500 calories per day can help most women lose weight. Eating 1,500 1,800 calories per day can help most men lose weight. What is my plan? My goal is to have calories per day. If I have this many calories per day, I should lose around pounds per week. What do I need to know about calorie counting? In order to meet your daily calorie goal, you will need to: Find out how many calories are in each food you would like to eat. Try to do this before you eat. Decide how much of the food you plan to eat. Write down what you ate and how many calories it had. Doing this is called keeping a food log. To successfully lose weight, it is important to balance calorie counting with a healthy lifestyle that includes regular activity. Aim for 150 minutes of moderate exercise (such as walking) or 75 minutes of vigorous exercise (such as running) each week. Where do I find calorie information? The number of calories in a food can be found on a Nutrition Facts label. If a food does not have aNutrition Facts label, try to look up the calories online or ask your dietitian for help. Remember that calories are listed per serving. If you choose to have more than one serving of a food, you will have to multiply the calories per serving by the amount of servings you plan to eat. Forexample, the label on a package of bread might say that a serving size is 1 slice and that there are 90 calories in a serving. If you eat 1 slice, you will have eaten 90 calories. If you eat 2 slices, you will have eaten 180 calories. How do I keep a food log? Immediately after each meal, record the following information in your food log: What you ate. Don't forget to include toppings, sauces, and other extras on the food. How much you ate. This can be measured in cups, ounces, or number of items. How many calories each food and drink had. The total number of calories in the meal. Keep your food log near you, such as in a small notebook in your pocket, or use a mobile kalyan or website. Some programs will calculate calories for you and show you how many calories you have left forthe day to meet your goal. What are some calorie counting tips? Use your calories on foods and drinks that will fill you up and not leave you hungry: ?Some examples of foods that fill you up are nuts and nut butters, vegetables, lean proteins, and high-fiber foods like whole grains. High-fiber foods are foods with more than 5 g fiber per serving. ?Drinks such as sodas, specialty coffee drinks, alcohol, and juices have a lot of calories, yet do not fill you up. Eat nutritious foods and avoid empty calories. Empty calories are calories you get from foods or beverages that do not have many vitamins or protein, such as candy, sweets, and soda. It is better to have a nutritious high-calorie food (such as an avocado) than a food with few nutrients (such as a bag of chips). Know how many calories are in the foods you eat most often. This will help you calculate calorie counts faster. Pay attention to calories in drinks. Low-calorie drinks include water and unsweetened drinks. Pay attention to nutrition labels for low fat or fat free foods. These foods sometimes have thesame amount of calories or more calories than the full fat versions. They also often have added sugar, starch, or salt, to make up for flavor that was removed with the fat. Find a way of tracking calories that works for you. Get creative. Try different apps or programs ifwriting down calories does not work for you. What are some portion control tips? Know how many calories are in a serving. This will help you know how many servings of a certain food you can have. Use a measuring cup to measure serving sizes. You could also try weighing out portions on a kitchenscale. With time, you will be able to estimate serving sizes for some foods. Take some time to put servings of different foods on your favorite plates, bowls, and cups so you know what a serving looks like. Try not to eat straight from a bag or box. Doing this can lead to overeating. Put the amount you would like to eat in a cup or on a plate to make sure you are eating the right portion. Use smaller plates, glasses, and bowls to prevent overeating. Try not to multitask (for example, watch TV or use your computer) while eating. If it is time to eat, sit down at a table and enjoy your food. This will help you to know when you are full. It will also help you to be aware of what you are eating and how much you are eating. What are tips for following this plan? Reading food labels Check the calorie count compared to the serving size. The serving size may be smaller than what youare used to eating. Check the source of the calories. Make sure the food you are eating is high in vitamins and proteinand low in saturated and trans fats. Shopping Read nutrition labels while you shop. This will help you make healthy decisions before you decide to purchase your food. Make a grocery list and stick to it. Cooking Try to cook your favorite foods in a healthier way. For example, try baking instead of frying. Use low-fat dairy products. Meal planning Use more fruits and vegetables. Half of your plate should be fruits and vegetables. Include lean proteins like poultry and fish. How do I count calories when eating out? Ask for smaller portion sizes. Consider sharing an entree and sides instead of getting your own entree. If you get your own entree, eat only half. Ask for a box at the beginning of your meal and put the rest of your entree in it so you are not tempted to eat it. If calories are listed on the menu, choose the lower calorie options. Choose dishes that include vegetables, fruits, whole grains, low-fat dairy products, and lean protein. Choose items that are boiled, broiled, grilled, or steamed. Stay away from items that are buttered,battered, fried, or served with cream sauce. Items labeled crispy are usually fried, unless stated otherwise. Choose water, low-fat milk, unsweetened iced tea, or other drinks without added sugar. If you want an alcoholic beverage, choose a lower calorie option such as a glass of wine or light beer. Ask for dressings, sauces, and syrups on the side. These are usually high in calories, so you should limit the amount you eat. If you want a salad, choose a garden salad and ask for grilled meats. Avoid extra toppings like hester, cheese, or fried items. Ask for the dressing on the side, or ask for olive oil and vinegar or lemon to use as dressing. Estimate how many servings of a food you are given. For example, a serving of cooked rice is cup orabout the size of half a baseball. Knowing serving sizes will help you be aware of how much food you are eating at restaurants. The list below tells you how big or small some common portion sizes arebased on everyday objects: ?1 oz 4 stacked dice. ?3 oz 1 deck of cards. ?1 tsp 1 . ?1 Tbsp a ping-pong ball. ?2 Tbsp 1 ping-pong ball. ? cup baseball. ?1 cup 1 baseball. Summary Calorie counting means keeping track of how many calories you eat and drink each day. If you eat fewer calories than your body needs, you should lose weight. A healthy amount of weight to lose per week is usually 1 2 lb (0.5 0.9 kg). This usually means reducing your daily calorie intake by 500 750 calories. The number of calories in a food can be found on a Nutrition Facts label. If a food does not have aNutrition Facts label, try to look up the calories online or ask your dietitian for help. Use your calories on foods and drinks that will fill you up, and not on foods and drinks that will leave you hungry. Use smaller plates, glasses, and bowls to prevent overeating. This information is not intended to replace advice given to you by your health care provider. Make sure you discuss any questions you have with your health care provider. Document Released: 05/11/2006 Document Revised: 01/28/2019 Document Reviewed: 04/10/2017 [employer] Patient Education 2020 [employer]. 09/23/2021 08:08:37 Urethral Stricture Urethral Stricture Urethral stricture is narrowing of the tube (urethra) that carries urine from the bladder out of the body. The urethra can become narrow due to scar tissue from an injury or infection. This can make it difficult to pass urine. In women, the urethra opens above the vaginal opening. In men, the urethra opens at the tip of the penis, and the urethra is much longer than it is in women. Because of the length of the male urethra, urethral stricture is much more common in men. This condition is treated with surgery. What are the causes? In both men and women, common causes of urethral stricture include: Urinary tract infection (UTI). Sexually transmitted infection (STI). Use of a tube placed into the urethra to drain urine from the bladder (urinary catheter). Urinary tract surgery. In men, common causes of urethral stricture include: A severe injury to the pelvis. Prostate surgery. Injury to the penis. In many cases, the cause of urethral stricture is not known. What increases the risk? You are more likely to develop this condition if you: Are male. Men who have had prostate surgery are at risk of developing this condition. Use a urinary catheter. Have had urinary tract surgery. What are the signs or symptoms? The main symptom of this condition is difficulty passing urine. This may cause decreased urine flow, dribbling, or spraying of urine. Other symptom of this condition may include: Frequent UTIs. Blood in the urine. Pain when urinating. Swelling of the penis in men. Inability to pass urine (urinary obstruction). How is this diagnosed? This condition may be diagnosed based on: Your medical history and a physical exam. Urine tests to check for infection or bleeding. X-rays. Ultrasound. Retrograde urethrogram. This is a type of test in which dye is injected into the urethra and then an X-ray is taken. Urethroscopy. This is when a thin tube with a light and camera on the end (urethroscope) is used tolook at the urethra. How is this treated? This condition is treated with surgery. The type of surgery that you have depends on the severity of your condition. You may have: Urethral dilation. In this procedure, the narrow part of the urethra is stretched open (dilated) with dilating instruments or a small balloon. Urethrotomy. In this procedure, a urethroscope is placed into the urethra, and the narrow part of the urethra is cut open with a surgical blade inserted through the urethroscope. Open surgery. In this procedure, an incision is made in the urethra, the narrow part is removed, and the urethra is reconstructed. Follow these instructions at home: Take kfco-psw-[id number] and prescription medicines only as told by your health care provider. If you were prescribed an antibiotic medicine, take it as told by your health care provider. Do notstop taking the antibiotic even if you start to feel better. Drink enough fluid to keep your urine pale yellow. Keep all follow-up visits as told by your health care provider. This is important. Contact a health care provider if: You have signs of a urinary tract infection, such as: ?Frequent urination or passing small amounts of urine frequently. ?Needing to urinate urgently. ?Pain or burning with urination. ?Urine that smells bad or unusual. ?Cloudy urine. ?Pain in the lower abdomen or back. ?Trouble urinating. ?Blood in the urine. ?Vomiting or being less hungry than normal. ?Diarrhea or abdominal pain. ?Vaginal discharge, if you are female. Your symptoms are getting worse instead of better. Get help right away if: You cannot pass urine. You have a fever. You have swelling, bruising, or discoloration of your genital area. This includes the penis, scrotum, and inner thighs for men, and the outer genital organs (vulva) and inner thighs for women. You develop swelling in your legs. You have difficulty breathing. Summary Urethral stricture is narrowing of the tube (urethra) that carries urine from the bladder out of the body. The urethra can become narrow due to scar tissue from an injury or infection. This condition can make it difficult to pass urine. This condition is treated with surgery. The type of surgery that you have depends on the severity of your condition. Contact a health care provider if your symptoms get worse or you have signs of a urinary tract infection. This information is not intended to replace advice given to you by your health care provider. Make sure you discuss any questions you have with your health care provider. Document Released: 06/06/2016 Document Revised: 12/22/2018 Document Reviewed: 12/22/2018 [employer] Patient Education 2020 [employer]. Follow Up Care 06/03/2021 13:48:49 With:SHARI HARRELL, SELMA Rubin Address: [facility] [address] , [place] [address]- When:03/26/2022 [facility] [place] evaluation + Plan note Future Appointments Appointment Date:03/28/2022 08:30:00 AM Scheduled Provider:Puneet CHILDS MD Location:[facility] Appointment Type:URO Office Visit [facility] evaluation noteNo assessment information available [facility] Work Phone: Evaluation noteNo InformationNortMagee [facility] [email or web address] Other Evaluation note* Diagnosis Pain of right hip Pain of left hip History of bilateral total hip arthroplasty [facility] Diagnosis Actinic keratosis- Primary Seborrheic keratosis, inflamed [facility]* Diagnosis Onset Date Resolution Status Admit Date Hypertension acuteAugust 2024 1:26pmInsomniaacuteAugust 2024 1:26pmMedicare annual wellness visit, subsequentacuteAugust 2024 1:26pmMixed hyperlipidemiaacuteAugust 2024 1:26pmScreening for breast canceracute January 16, 2025 1:26pm [facility] Work Phone: History general Narrative - Reported* Type Description Date Medical History insomnia Medical HistoryHypertensionSurgical Historyright hip replacementSurgical History colonoscopy [facility] [email or web address] Other Hisxkpy general Narrative - Reported* Type Description Date Medical History insomnia Medical HistoryHypertensionSurgical Historyright hip replacementSurgical History colonoscopySurgical HistoryLeft hip replacement [facility] [email or web address] Other Hospital course Narrative No data available for this section [facility] progress note No data available for this section [facility] reason for referral (narrative)No reason for referral information availableMer[facility] Work Phone: Summary Purpose Family History Relationship Condition Age at Onset Recorded Date/T matthew mother Alzheimer's dementia Unknown DeceasedUnknown Advance Directives Advance Directive Response Recorded Date/ Time Advance Directives No January 14, 2024 10:55am Chief Complaint and Reason for Visit Chief Complaint CBC w/ meta & lipid Chief Complaint med refills- LM TO R S Chief Complaint Admit Date wellness January 16, 2025 1: 26pm Reason for Visit Admit Date Hypertension January 16, 2025 1: 26pm Insomnia January 16, 2025 1: 26pm Medicare annual wellness visit, subseque nt January 16, 2025 1:26pm Mixed hyperlipidemia January 16, 2025 1 :26pm Screening for breast cancer January 16, 2025 1:26pm Chief Complaint Admit Date wellness January 16, 2025 1: 26pm Ear Cleaning January 24, 2025 2:57pm Reason for Visit Admit Date BMI 26.0-26.9,adult January 16, 2025 1: 26pm Hypertension January 16, 2025 1: 26pm Insomnia January 16, 2025 1: 26pm Medicare annual wellness visit, subseque nt January 16, 2025 1:26pm Mixed hyperlipidemia January 16, 2025 1 :26pm Screening for breast cancer January 16, 2025 1:26pm Reason for Referral SpecialtyDiagnoses / ProceduresReferred By ContactReferred To Contact Diagnoses Actinic keratosis Jennifer Branham MD [address] [phone] Referral IDStatusReasonStart DateExpiration DateVisits RequestedVisits [id number] Review/ Additional Source Comments INFORMATION SOURCE (unrecogn ized section and content) DATE CREATED AUTHOR 03/23/2022 [facility] DATE CREATED AUTHOR AUTHOR'S ORGANIZ ATION 03/30/2022 [facility] DATE CREATED AUTHOR AUTHOR'S ORGANIZ ATION 03/07/2024 [facility] DATE CREATED AUTHOR AUTHOR'S ORGANIZ ATION 01/19/2025 [facility] Care Teams (unrecognized sec tion and content) Team Status: Inactive Member Role Status Dates Lucia Linda MD Primary Care Provider, Referring Pro vider Active Outreach CommunityAttending ProviderActive Team Status: Active Member Role Status Dates Lucia Linda MD Primary Care Provider Active Team Status: Active Member Role Status Dates Courtney Mendez APRN OILING MACHINE OPERATOR-C Primary Care Provider Active Team Status: Inactive Member Role Status Dates Courtney Mendez APRN OILING MACHINE OPERATOR-C Primary Care Provider, Attending Provider Active Start: January 18, 2024 End: January 18, 2024 Team Status: Inactive Member Role Status Dates Courtney Mendez APRN OILING MACHINE OPERATOR-C Primary Care Provider Active Start: January 16, 2025 End: January 16, 2025Courtney Mendez APRN OILING MACHINE OPERATOR-CAttending ProviderActive Start: January 16, 2025 End: January 16, 2025 Team Status: Active Member Role Status Dates Courtney Mendez APRN OILING MACHINE OPERATOR-C Primary Care Provider Active Start: January 20, 2025 Courtney Mendez APRN OILING MACHINE OPERATOR-CAttenanthony ProviderActiveStart: January 20, 2025 Team Status: Inactive Member Role Status Dates Courtney Mendez APRN OILING MACHINE OPERATOR-C Primary Care Provider Active Start: January 242024 End: January 24, 2025Courtney Mendez APRN OILING MACHINE OPERATOR-CAttending ProviderActive Start: January 24, 2025 End: January 24, 2025 Goals (unrecognized section and content) Goals may be documented in a n alternate section REASON FOR VISIT (unrecogniz ed section and content) ReasonCommentsPost-opReasonCommentsSuspicious Skin Lesion FOR RECORDS PERTAINING TO PATIENTS WHO ARE OR HAVE BEEN ENROLLED IN A CHEMICAL DEPENDENCY/SUBSTANCEABUSE PROGRAM, SOME INFORMATION MAY BE OMITTED. This clinical summary was aggregated from multiple sources. Caution should be exercised in using it in the provision of clinical care. This summary normalizes information from multiple sources, and as a consequence, information in this document may materially change the coding, format and clinical context of patient data. In addition, data may be omitted in some cases. CLINICAL DECISIONS SHOULD BE BASED ON THE PRIMARY CLINICAL RECORDS. [employer] [facility]. provides no warranty or guarantee of the accuracy or completeness of information in this document.
== END 2025-03-29 14:01 | disposition home or self-care (01) ==
LOC: MAMMO 14:00
PROVIDERS: PCP Nurse Practitioner Family; Visit Provider Nurse Practitioner Family
DX: Z12.31 Encounter for screening mammogram for malignant neoplasm of breast (principal)
CPT/HCPCS: 77063; 77067